=== PATIENT | female | born 1995 | race Caucasian/White ===

== ENCOUNTER 2018-08-07 00:33 | Emergency (ER) | payer SELFPAY ==
[~2018-08-07] VITALS: Ht 152.4 cm; Wt 89.8 kg
[2018-08-07] MEDS ORDERED: TRAM50TA2 PO (01:05)
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
[2018-08-07 01:13] VITALS: BP 126/80
== END 2018-08-07 01:13 | disposition home or self-care (01) ==
LOC: EDUNIT# 00:33 → ER FS 00:40
DX: S80.01XA Contusion of right knee, initial encounter (principal); F17.210 Nicotine dependence, cigarettes, uncomplicated; W22.09XA Striking against other stationary object, initial encounter
CPT/HCPCS: 99283

== ENCOUNTER 2018-09-12 16:47 | Emergency (ER) | payer SELFPAY ==
[~2018-09-12] VITALS: Ht 152.4 cm; Wt 72.6 kg
[~2018-09-12 16:47] MED LIST: TRAM50TA2 PO
--- NOTE | 2018-09-12 17:20 | NUR ---
DR DREW IN TO SEE PT.
[2018-09-12 17:37] LABS: BILIRUBIN,URINE NEGATIVE (NEGATIVE); CLARITY,URINE SL CLOUDY; COLOR,URINE YELLOW; GLUCOSE, URINE (UA) NEGATIVE (NEGATIVE); KETONES,URINE NEGATIVE (NEGATIVE); LEUKOCYTE ESTERASE ,URINE 2+ (NEGATIVE); NITRITE,URINE POSITIVE (NEGATIVE); PROTEIN,URINE TRACE (NEGATIVE); UROBILINOGEN,URINE 0.2 MG/DL (NORMAL)
[2018-09-12 17:38] LABS: BACTERIA,URINE 4+ /HPF; RBC,URINE 0-2 /HPF
[2018-09-12] MEDS ORDERED: CEPHALEXIN 250 MG (KEFLEX) CAP PO STA (17:42)
[2018-09-12] MEDS ORDERED: CEPH500T PO (17:44)
--- NOTE | 2018-09-12 17:44 | ED GU-Female ---
General Chief Complaint: - Urinary Stated Complaint: STOMACH PAINS, NAUSEA Nursing Triage Note: PT PRESENTS WITH VERY LOW ABD TO SUPRAPUBIC REGION PAIN SINCE LAST WEDNESDAY. PT IMMEDIATELY VERBALIZES CONCERN IF . PT SMILING REQUESTING SOMETHING TO DRINK AND WANTING TO USE PHONE OUTSIDE. LMP 07/22/18 Nursing Sepsis Screen: No Definite Risk History of Present Illness Date Seen by Provider: Sep 12, 2018 Time Seen by Provider: 17:21 This is a 23-year-old female who complains of one week of mid suprapubic discomfort, nonradiating. She has implanted control but she is concerned she may be because she has not had a menstrual period in over a month. No vaginal bleeding or discharge. In bowel movements, she has not noticed dysuria or hematuria or frequency. She has vomited intermittently in the evenings during the past week but no vomiting today. This has been nonbilious and nonbloody. Allergies and Home Medications Allergies Coded Allergies: No Known Drug Allergies (Unverified , 08/07/18) Home Medications Cephalexin 500 Mg Tablet, 500 MG PO BID Prescribed by: IRAM DREW on 09/12/18 1744 Tramadol HCl 50 Mg Tablet, 100 MG PO Q8H PRN for PAIN Prescribed by: IRAM DREW on 08/07/18 0105 Patient Home Medication List Home Medication List Reviewed: Yes Review of Systems Review of Systems Constitutional: no symptoms reported EENTM: no symptoms reported Respiratory: no symptoms reported Cardiovascular: no symptoms reported Gastrointestinal: see HPI Genitourinary: no symptoms reported Musculoskeletal: no symptoms reported Skin: no symptoms reported Psychiatric/Neurological: No Symptoms Reported Endocrine: No Symptoms Reported Hematologic/Lymphatic: No Symptoms Reported Past Foqsuot-Cfpufv-Gufzah Hx Patient Social History Alcohol Use: Denies Use Recreational Drug Use: No Smoking Status: Current Everyday Smoker Type Used: Cigarettes 2nd Hand Smoke Exposure: No Recent Foreign Travel: No Contact w/Someone Who Travel: No Recent Infectious Disease Expo: No Recent Hopitalizations: No Seasonal Allergies Seasonal Allergies: No Past Medical History Surgeries: No Respiratory: No Cardiac: No Neurological: No Last Menstrual Period: Jul 22, 2018 Genitourinary: No Gastrointestinal: No Musculoskeletal: Yes (right knee pain) Endocrine: No HEENT: No Cancer: No Psychosocial: No Integumentary: No Blood Disorders: No Adverse Reaction/Blood Tranf: No Physical Exam Vital Signs Vital Signs - First Documented 09/12/18 16:50 Temp 97.6 Pulse 127 Resp 20 B/P (MAP) 137/72 (93) Pulse Ox 98 O2 Delivery Room Air Capillary Refill : Less Than 3 Seconds Height, Weight, BMI Height: 5'0" Weight: 160lbs. oz. 72.940111sg; BMI Method:Stated General Appearance: no apparent distress HEENT: normal ENT inspection Neck: supple Cardiovascular: normal peripheral pulses, regular rate, rhythm Respiratory: lungs clear Gastrointestinal: non tender, soft Back: no CVA tenderness Neurologic/Psychiatric: no motor/sensory deficits, alert, normal mood/affect, oriented x 3; No abnormal gait Skin: warm/dry Progress/Results/Core Measures Suspected Sepsis Recent Fever Within 48 Hours: No Infection Criteria Present: None New/Unexplained Altered Menta: No Sepsis Screen: No Definite Risk SIRS Temperature:97.6 Pulse: 127 Respiratory Rate: 20 Blood Pressure 137 /72 Mean: 93 Results/Orders Lab Results Laboratory Tests Test 09/12/18 16:50 Range/Units Urine Color YELLOW Urine Clarity SL CLOUDY Urine pH 6.0 5-9 Urine Specific [place] 1.025 H 1.016-1.022 Urine Protein TRACE H NEGATIVE Urine Glucose (UA) NEGATIVE NEGATIVE Urine Ketones NEGATIVE NEGATIVE Urine Nitrite POSITIVE H NEGATIVE Urine Bilirubin NEGATIVE NEGATIVE Urine Urobilinogen 0.2 NORMAL MG/DL Urine Leukocyte Esterase 2+ H NEGATIVE Urine RBC (Auto) TRACE H NEGATIVE Urine RBC 0-2 /HPF Urine WBC 10-25 H /HPF Urine Squamous Epithelial Cells 5-10 /HPF Urine Crystals NONE /LPF Urine Bacteria 4+ /HPF Urine Casts NONE /LPF Urine Mucus LARGE H /LPF Urine Culture Indicated YES Urine Test NEGATIVE NEGATIVE My Orders Orders - IRAM DREW DO Hcg,Qualitative Urine (09/12/18 17:13) Ua Culture If Indicated (09/12/18 17:13) Urine Culture (09/12/18 16:50) Cephalexin Capsule (Keflex Capsule) (09/12/18 17:42) Vital Signs/I&O 09/12/18 16:50 Temp 97.6 Pulse 127 Resp 20 B/P (MAP) 137/72 (93) Pulse Ox 98 O2 Delivery Room Air Capillary Refill : Less Than 3 Seconds Blood Pressure Mean: 93 Progress Note : Progress Note This is a 23-year-old female with implanted control here because she has lower abdominal discomfort for one week, intermittent vomiting, and has not had a menstrual period in over a month. She is not . She does have evidence of UTI. We will treat empirically with cephalexin. Abdominal exam is benign. With no vaginal bleeding or discharge or fever or pelvic inflammatory disease is felt to be less likely. With her mild ongoing midline discomfort it is unlikely that she has ovarian torsion. She will follow-up with her doctor as soon as possible for repeat examination and will return for any new or worsening symptoms. Departure Impression Primary Impression: Cystitis Disposition: HOME, SELF-CARE Condition: Stable Departure-Patient Inst. Referrals: NO,LOCAL PHYSICIAN (PCP) Primary Care Physician Patient Instructions: Urinary Tract Infection, Adult (DC) Scripts Cephalexin (Cephalexin) 500 Mg Tablet 500 MG PO BID for 7 Days, #14 TAB 0 Refills Prov: IRAM DREW DO 09/12/18 IRAM DREW DO Sep 12, 2018 17:44
[2018-09-12 17:54] VITALS: BP 132/69
== END 2018-09-12 17:54 | disposition home or self-care (01) ==
LOC: EDUNIT# 16:47 → ER FS 16:49
DX: N30.90 Cystitis, unspecified without hematuria (principal); F17.210 Nicotine dependence, cigarettes, uncomplicated
CPT/HCPCS: 81000; 84703; 87077; 87088; 87186; 99283

== ENCOUNTER 2019-01-12 14:11 | Emergency (ER) | payer SELFPAY ==
[~2019-01-12] VITALS: Ht 152.4 cm; Wt 68.0 kg
[~2019-01-12 14:11] MED LIST changes: +CEPH500T PO
[2019-01-12] MEDS ORDERED: DEXAMETHASONE 10 MG/ML (DECADRON) 1 ML VIAL IM ONE (14:30)
--- NOTE | 2019-01-12 14:42 | ED EENT ---
History of Present Illness General Chief Complaint: Oral/Throat Problems Stated Complaint: SORE THROAT Nursing Triage Note: SORE THROAT FOR 2 WEEKS. Source: patient Exam Limitations: no limitations History of Present Illness Date Seen by Provider: Jan 12, 2019 Time Seen by Provider: 14:20 Initial Comments The patient is an obese 23-year-old female who presents for evaluation of sore throat and congestion over the last 2 weeks. She states that dckh-fcq-jxvzjsx medications are not helping. She is alert and oriented 4, calm, and appears to be in no distress. She denies fevers or chills, chest pain or shortness of breath, nausea or vomiting, abdominal or back pain, dysuria, or syncope. Severity: mild Prearrival Treatment: over the counter meds Allergies and Home Medications Allergies Coded Allergies: No Known Drug Allergies (Unverified , 08/07/18) Home Medications Cephalexin 500 Mg Tablet, 500 MG PO BID Prescribed by: IRAM DREW on 09/12/18 1744 Tramadol HCl 50 Mg Tablet, 100 MG PO Q8H PRN for PAIN Prescribed by: IRAM DREW on 08/07/18 0105 Patient Home Medication List Home Medication List Reviewed: Yes Review of Systems Review of Systems Constitutional: no symptoms reported Eyes: No Symptoms Reported Ears: No Symptoms Reported Nose: congestion Mouth: no symptoms reported Throat: pain, swelling, painful swallowing Respiratory: cough Cardiovascular: no symptoms reported : No Musculoskeletal: no symptoms reported Skin: no symptoms reported Neurological: No Symptoms Reported Hematologic/Lymphatic: No Symptoms Reported Immunological/Allergic: no symptoms reported All Other Systems Reviewed Negative Unless Noted: Yes Past Gapcxio-Efgwbl-Fjbcpi Hx Past Med/Social Hx: Reviewed Nursing Past Med/Soc Hx Patient Social History Alcohol Use: Denies Use Recreational Drug Use: No Type Used: Cigarettes 2nd Hand Smoke Exposure: No Recent Foreign Travel: No Contact w/Someone Who Travel: No Recent Infectious Disease Expo: No Recent Hopitalizations: No Physical Abuse: No Sexual Abuse: No Mistreated: No Fear: No Seasonal Allergies Seasonal Allergies: No Past Medical History Surgeries: No Respiratory: No Cardiac: No Neurological: No Genitourinary: No Gastrointestinal: No Musculoskeletal: Yes (right knee pain) Endocrine: No HEENT: No Cancer: No Psychosocial: No Integumentary: No Blood Disorders: No Adverse Reaction/Blood Tranf: No Physical Exam Vital Signs Vital Signs - First Documented 01/12/19 14:19 Temp 98.7 Pulse 98 Resp 18 B/P (MAP) 116/64 (81) O2 Delivery Room Air Height, Weight, BMI Height: 5'0" Weight: 150lbs. oz. 68.301767ak; BMI Method:Stated General Appearance: WD/WN, no apparent distress, obese Eyes: bilateral eye normal inspection, bilateral eye PERRL, bilateral eye EOMI Mouth/Throat: tongue swollen, tonsillar exudate, tonsillar swelling Neck: non-tender, full range of motion, supple, normal inspection Cardiovascular: regular rate, rhythm, no edema, no JVD Respiratory: lungs clear, normal breath sounds, no respiratory distress Gastrointestinal: normal bowel sounds, non tender, soft Neurologic/Psychiatric: no motor/sensory deficits, alert, normal mood/affect, oriented x 3 Skin: normal color, warm/dry Progress/Results/Core Measures Results/Orders Lab Results Laboratory Tests Test 01/12/19 14:20 01/12/19 14:25 Range/Units Group A Streptococcus Screen POSITIVE H NEGATIVE Urine Test NEGATIVE NEGATIVE My Orders Orders - DALE GREGG DO Rapid Strep A Screen (01/12/19 14:14) Hcg,Qualitative Urine (01/12/19 14:14) Dexamethasone Injection (Decadron Inject (01/12/19 14:30) Medications Given in ED Current Medications Medications Dose Ordered Sig/Kevin Route Start Time Stop Time Status Last Admin Dose Admin Dexamethasone Sodium Phosphate 10 mg ONCE ONCE IM 01/12/19 14:30 01/12/19 14:31 DC 01/12/19 14:46 10 MG Vital Signs/I&O 01/12/19 14:19 Temp 98.7 Pulse 98 Resp 18 B/P (MAP) 116/64 (81) O2 Delivery Room Air Blood Pressure Mean: 81 Progress Progress Note : Progress Note @1502 - Patient updated on positive strep throat finding. She'll go home with a prescription for amoxicillin. Advised patient to follow up with her PCP in next 2-3 days and to return to the emergency department for new or worsening symptoms. The patient expresses verbal understanding and agreement with the plan and is stable for discharge. Departure Impression Primary Impression: Strep pharyngitis Disposition: 01 HOME, SELF-CARE Condition: Stable/Unchanged Departure-Patient Inst. Decision time for Depature: 15:02 Referrals: NO,LOCAL PHYSICIAN (PCP/Family) Primary Care Physician Patient Instructions: Strep Throat (DC) Add. Discharge Instructions: Take the prescribed antibiotic as directed. Follow-up with your doctor in the next 2-3 days. Return to the ER for new or worsening symptoms. Scripts Amoxicillin (Amoxicillin) 500 Mg Capsule 500 MG PO BID for 10 Days, #20 CAP 0 Refills Prov: DALE GREGG DO 01/12/19 DALE GREGG DO Jan 12, 2019 14:41
[2019-01-12] MEDS ORDERED: AMOX500C2 PO (15:03)
[2019-01-12 15:09] VITALS: BP 112/72
== END 2019-01-12 15:10 | disposition home or self-care (01) ==
LOC: EDUNIT# 14:11 → ER FS 14:13
DX: J02.0 Streptococcal pharyngitis (principal)
CPT/HCPCS: 84703; 87430; 99285

== ENCOUNTER 2019-02-28 21:20 | Emergency (ER) | payer SELFPAY ==
[~2019-02-28] VITALS: Ht 152.4 cm; Wt 90.7 kg
[~2019-02-28 21:20] MED LIST changes: +AMOX500C2 PO
[2019-02-28] MEDS ORDERED: AZITHROMYCIN 250 MG TAB (ZITHROMAX) PO ONE (21:45)
[2019-02-28] MEDS ORDERED: LIDOCAINE 1% INJ 20 ML 20 ML VIAL INJ ONE (21:45)
[2019-02-28 21:49] LABS: BACTERIA,URINE LARGE /HPF; BILIRUBIN,URINE NEGATIVE (NEGATIVE); CLARITY,URINE CLOUDY; COLOR,URINE YELLOW; GLUCOSE, URINE (UA) NEGATIVE (NEGATIVE); KETONES,URINE NEGATIVE (NEGATIVE); LEUKOCYTE ESTERASE ,URINE 2+ (NEGATIVE); NITRITE,URINE NEGATIVE (NEGATIVE); PROTEIN,URINE 2+ (NEGATIVE); UROBILINOGEN,URINE 0.2 MG/DL (NORMAL); WBC,URINE TNTC /HPF
[2019-02-28] MEDS ORDERED: cefTRIAXone 1,000 MG IV (ROCEPHIN) VIAL ONE (21:56)
[2019-02-28 22:07] VITALS: BP 128/63
--- NOTE | 2019-02-28 22:07 | ED GU-Female ---
General Chief Complaint: - Urinary Stated Complaint: BURNING W URINATION, VAGINAL BLEEDING Nursing Triage Note: PT. REPORTED SHE WENT TO URGENT CARE ON THE , STARTED HER PERIOD ON THE , WAS TREATED FOR A UTI ON THE AND ALSO REPORTED SHE THROUGH HER MEDICATION AWAY BECAUSE IT DID NOT WORK ON THE . PT. STATED SHE HAS BURNING SHARP PAIN WITH URINATION THEN C/O HAVING PAIN ALL THE TIME. Nursing Sepsis Screen: No Definite Risk Source: patient Exam Limitations: no limitations History of Present Illness Date Seen by Provider: Feb 28, 2019 Time Seen by Provider: 22:04 Initial Comments Patient is a 23-year-old female who presents with intermittent vaginal bleeding while on her menstrual cycle which started yesterday. 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 She also expresses concerns of urinary frequency urgency dysuria. She states she was treated yesterday at [facility] for a urinary tract infection. After taking one dose of antibiotics she states she threw the rest medication away as it did not work. No fevers chills, nausea vomiting or sweats. No history of kidney stones. Patient does express concerns for possible STD exposure and her significant other has checked in the emergency department with similar concerns. Patient is currently on control. Timing/Duration: just prior to arrival Severity/Quality: mild Location: left flank Radiation: none Allergies and Home Medications Allergies Coded Allergies: No Known Drug Allergies (Unverified , 08/07/18) Home Medications Amoxicillin 500 Mg Capsule, 500 MG PO BID Prescribed by: DALE GREGG on 01/12/19 1503 Cephalexin 500 Mg Tablet, 500 MG PO BID Prescribed by: IRAM DREW on 09/12/18 1744 Tramadol HCl 50 Mg Tablet, 100 MG PO Q8H PRN for PAIN Prescribed by: IRAM DREW on 08/07/18 0105 Patient Home Medication List Home Medication List Reviewed: Yes Review of Systems Review of Systems Constitutional: see HPI EENTM: see HPI Respiratory: see HPI Cardiovascular: see HPI Gastrointestinal: see HPI Genitourinary: see HPI Musculoskeletal: see HPI Skin: see HPI Past Czcjknb-Rhbhyu-Yaudng Hx Past Med/Social Hx: Reviewed Nursing Past Med/Soc Hx Patient Social History Type Used: Cigarettes 2nd Hand Smoke Exposure: No Recent Foreign Travel: No Contact w/Someone Who Travel: No Recent Infectious Disease Expo: No Recent Hopitalizations: No Physical Abuse: No Sexual Abuse: No Mistreated: No Fear: No Seasonal Allergies Seasonal Allergies: No Past Medical History Surgeries: No Respiratory: No Cardiac: No Neurological: No : No ( TEST WAS NEG.) Last Menstrual Period: Feb 27, 2019 Genitourinary: No Gastrointestinal: No Endocrine: No HEENT: No Cancer: No Did You Recieve Any Treatments: No Psychosocial: No Integumentary: No Blood Disorders: No Adverse Reaction/Blood Tranf: No Physical Exam Vital Signs Vital Signs - First Documented 02/28/19 21:25 Temp 36.8 Pulse 97 Resp 20 B/P (MAP) 128/63 (84) Pulse Ox 97 O2 Delivery Room Air Capillary Refill : Less Than 3 Seconds Height, Weight, BMI Height: 5'0" Weight: 150lbs. oz. 68.001338ek; 39.00 BMI Method:Stated General Appearance: no apparent distress HEENT: PERRL/EOMI, normal ENT inspection Neck: full range of motion, supple Respiratory: normal breath sounds Gastrointestinal: soft Back: no CVA tenderness Neurologic/Psychiatric: change management lead II-XII nml as tested, no motor/sensory deficits, alert, normal mood/affect, oriented x 3 Focused Exam Sepsis Stage: Ruled Out Progress/Results/Core Measures Suspected Sepsis Recent Fever Within 48 Hours: No Infection Criteria Present: None New/Unexplained Altered Menta: No Sepsis Screen: No Definite Risk SIRS Temperature: Pulse: 97 Respiratory Rate: 20 Blood Pressure 128 /63 Mean: 84 Results/Orders Lab Results Laboratory Tests Test 02/28/19 21:33 Range/Units Urine Color YELLOW Urine Clarity CLOUDY Urine pH 6.0 5-9 Urine Specific [place] 1.025 H 1.016-1.022 Urine Protein 2+ H NEGATIVE Urine Glucose (UA) NEGATIVE NEGATIVE Urine Ketones NEGATIVE NEGATIVE Urine Nitrite NEGATIVE NEGATIVE Urine Bilirubin NEGATIVE NEGATIVE Urine Urobilinogen 0.2 NORMAL MG/DL Urine Leukocyte Esterase 2+ H NEGATIVE Urine RBC (Auto) 2+ H NEGATIVE Urine RBC NONE /HPF Urine WBC TNTC H /HPF Urine Squamous Epithelial Cells 5-10 /HPF Urine Crystals NONE /LPF Urine Bacteria LARGE H /HPF Urine Casts NONE /LPF Urine Mucus NEGATIVE /LPF Urine Culture Indicated YES My Orders Orders - TANA OCAMPO DO Ua Culture If Indicated (02/28/19 21:35) Urine Bedside (02/28/19 21:35) Ceftriaxone For Im Use (Rocephin For Im (03/01/19 09:00) Lidocaine 1% Inj 20 Ml (Xylocaine 1% Inj (02/28/19 21:45) Azithromycin Tablet (Zithromax Tablet) (02/28/19 21:45) Urine Culture (02/28/19 21:33) Ceftriaxone For Iv Use (Rocephin For I (02/28/19 21:56) Medications Given in ED Current Medications Medications Dose Ordered Sig/Kevin Route Start Time Stop Time Status Last Admin Dose Admin Azithromycin 1,000 mg ONCE ONCE PO 02/28/19 21:45 02/28/19 21:46 DC 02/28/19 22:00 1,000 MG Ceftriaxone Sodium 1,000 mg STK-MED ONCE .ROUTE 02/28/19 21:56 02/28/19 21:57 DC 02/28/19 22:00 1,000 MG Lidocaine HCl 2.1 ml ONCE ONCE INJ 02/28/19 21:45 02/28/19 21:46 DC 02/28/19 21:59 2.1 ML Vital Signs/I&O 02/28/19 21:25 Temp 36.8 Pulse 97 Resp 20 B/P (MAP) 128/63 (84) Pulse Ox 97 O2 Delivery Room Air Capillary Refill : Less Than 3 Seconds Blood Pressure Mean: 84 Departure Communication (Admissions) Patient given empiric treatment for possible UTI/STD exposure. Instructions were to follow up with her FORMS ANALYST for further concerns. Impression Primary Impression: Concern about STD in female without diagnosis Additional Impression: Dysuria Disposition: 01 HOME, SELF-CARE Condition: Improved Departure-Patient Inst. Patient Instructions: Urinary Tract Infection, Adult (DC) Add. Discharge Instructions: Please follow up with PCP or FORMS ANALYST in 3-5 days for reevaluation. All discharge instructions reviewed with patient and/or family. Voiced understanding. TANA OCAMPO DO Feb 28, 2019 22:07
[2019-03-01] MEDS ORDERED: cefTRIAXone 1,000 MG/2.86 ml vial (IM ONLY) IM SCH (09:00)
== END 2019-02-28 22:05 | disposition home or self-care (01) ==
LOC: EDUNIT# 21:20 → ER FS 21:22
DX: R30.0 Dysuria (principal); Z11.3 Encounter for screening for infections with a predominantly sexual mode of transmission
CPT/HCPCS: 81000; 84703; 87077; 87088; 87186; 96372; 99284

== ENCOUNTER 2019-05-02 18:28 | Emergency (ER) | payer SELFPAY ==
[~2019-05-02] VITALS: Ht 152 cm; Wt 93.3 kg
[2019-05-02 18:49] LABS: BILIRUBIN,URINE NEGATIVE (NEGATIVE); CLARITY,URINE SLIGHTLY CLOUDY; COLOR,URINE YELLOW; GLUCOSE, URINE (UA) NEGATIVE (NEGATIVE); KETONES,URINE NEGATIVE (NEGATIVE); LEUKOCYTE ESTERASE ,URINE TRACE (NEGATIVE); NITRITE,URINE NEGATIVE (NEGATIVE); PH,URINE 6.5 (5-9); PROTEIN,URINE NEGATIVE (NEGATIVE)
[2019-05-02 18:50] LABS: HCG,QUALITATIVE URINE NEGATIVE (NEGATIVE)
[2019-05-02 18:54] LABS: BACTERIA,URINE NEGATIVE /HPF; RBC,URINE TNTC /HPF; SQUAMOUS EPITHELIAL CELL,UR 25-50 /HPF
--- NOTE | 2019-05-02 19:31 | ED GU-Female ---
General Chief Complaint: Abdominal/GI Problems Stated Complaint: STOMACHE/VAGINA BLEEDING Nursing Triage Note: Patient states she had her control implant removed just before , states she had some vaginal bleeding then. She reports today she woke around 11 am with generalized abdominal pain and "heavier than my normal period bleeding." She reports saturating 3 pads in 3 hours. She states she has been taking tests at home, test on the was negative. She reports taking tylenol at home which helped her pain. She states she had one miscarriage at age 18, then has had two normal pregnancies and deliveries. Nursing Sepsis Screen: No Definite Risk Source: patient History of Present Illness Date Seen by Provider: May 02, 2019 Time Seen by Provider: 19:31 Initial Comments 23-year-old female presenting with complaints of heavy vaginal bleeding and pelvic pain today. She states that she had an implantable control removed just before and had a very light menstrual period right after that. Then no menstrual cycle since then until now. today she started having pelvic pain and heavy menstrual bleeding. She states that she is getting clots coming out as well as used 3 pads in the last 3 hours. She is trying to get with her current boyfriend. She has taken multiple tests at home that have been negative the most recent one was on the . She denies having any fever or chills. She has no change in her bowel movements. Allergies and Home Medications Allergies Coded Allergies: No Known Drug Allergies (Unverified , 08/07/18) Home Medications Amoxicillin 500 Mg Capsule, 500 MG PO BID Prescribed by: DALE GREGG on 01/12/19 1503 Cephalexin 500 Mg Tablet, 500 MG PO BID Prescribed by: IRAM DREW on 09/12/18 174 Naproxen 500 Mg Tablet, 500 MG PO BID Prescribed by: BENJAMIN SIMPSON on 05/02/191999 Tramadol HCl 50 Mg Tablet, 100 MG PO Q8H PRN for PAIN Prescribed by: IRAM DREW on 08/07/18 0105 Patient Home Medication List Home Medication List Reviewed: Yes Review of Systems Review of Systems Constitutional: see HPI EENTM: no symptoms reported Respiratory: no symptoms reported Cardiovascular: no symptoms reported Gastrointestinal: abdominal pain (RLQ and LLQ); No nausea, No vomiting Genitourinary: see HPI; denies dysuria, denies frequency; other (low pelvic pain with vaginal bleeding but no discharge. Heavy bleeding today) Musculoskeletal: no symptoms reported Skin: no symptoms reported Past Gwcjpay-Njjadc-Hvhqof Hx Past Med/Social Hx: Reviewed Nursing Past Med/Soc Hx Patient Social History Alcohol Use: Denies Use Recreational Drug Use: Yes Drug of Choice: marijuana Smoking Status: Current Everyday Smoker Type Used: Cigarettes 2nd Hand Smoke Exposure: No Recent Foreign Travel: No Contact w/Someone Who Travel: No Recent Infectious Disease Expo: No Recent Hopitalizations: No Physical Abuse: No Sexual Abuse: No Mistreated: No Fear: No Seasonal Allergies Seasonal Allergies: No Past Medical History Surgeries: No Respiratory: No Cardiac: No Neurological: No Hx : 3 Hx Para: 2 Hx Total # of Abortions (Sp): 1 Genitourinary: No Gastrointestinal: No Musculoskeletal: No Endocrine: No HEENT: No Cancer: No Did You Recieve Any Treatments: No Psychosocial: No Integumentary: No Blood Disorders: No Adverse Reaction/Blood Tranf: No Physical Exam Vital Signs Vital Signs - First Documented 05/02/19 18:40 Temp 36.5 Pulse 94 Resp 16 B/P (MAP) 145/84 (104) Pulse Ox 99 O2 Delivery Room Air Capillary Refill : Less Than 3 Seconds Height, Weight, BMI Height: 5'0" Weight: 150lbs. oz. [id number]; 40.00 BMI Method:Stated General Appearance: WD/WN, no apparent distress HEENT: PERRL/EOMI, pharynx normal Pelvic: other (deferred due to bleeding and pain patient states she will fol low-up with gynecology if pelvic exam needed) Skin: normal color, warm/dry Progress/Results/Core Measures Suspected Sepsis Recent Fever Within 48 Hours: No Infection Criteria Present: None New/Unexplained Altered Menta: No Sepsis Screen: No Definite Risk SIRS Temperature: Pulse: 94 Respiratory Rate: 16 Blood Pressure 145 /84 Mean: 104 Results/Orders Lab Results Laboratory Tests Test 05/02/19 18:40 Range/Units Urine Color YELLOW Urine Clarity SLIGHTLY CLOUDY Urine pH 6.5 5-9 Urine Specific [place] 1.025 H 1.016-1.022 Urine Protein NEGATIVE NEGATIVE Urine Glucose (UA) NEGATIVE NEGATIVE Urine Ketones NEGATIVE NEGATIVE Urine Nitrite NEGATIVE NEGATIVE Urine Bilirubin NEGATIVE NEGATIVE Urine Urobilinogen 0.2 < = 1.0 MG/DL Urine Leukocyte Esterase TRACE NEGATIVE Urine RBC (Auto) 3+ H NEGATIVE Urine RBC TNTC H /HPF Urine WBC NONE /HPF Urine Squamous Epithelial Cells 25-50 H /HPF Urine Crystals NONE /LPF Urine Bacteria NEGATIVE /HPF Urine Casts NONE /LPF Urine Mucus NEGATIVE /LPF Urine Culture Indicated NO Urine Test NEGATIVE NEGATIVE My Orders Orders - BENJAMIN SIMPSON MD Hcg,Qualitative Urine (05/02/19 18:44) Ketorolac Injection (Toradol Injection) (05/02/19 19:54) Vital Signs/I&O 05/02/19 05/02/19 18:40 20:02 Temp 36.5 36.8 Pulse 94 90 Resp 16 20 B/P (MAP) 145/84 (104) 103/62 Pulse Ox 99 98 O2 Delivery Room Air Room Air Capillary Refill : Less Than 3 Seconds Blood Pressure Mean: 104 POS Progress Note : Progress Note UA and urine test showed some blood but negative test. There is no sign of infection. Advised patient that this still appears to be consistent with her body trying to equalize out hormone levels and that it is not uncommon after having removal of the implanted control that she might have some heavier than normal periods as well as painful periods. Counseled to check back with Dr. Graves or she may need an ultrasound if she continues to have severe pain and heavy bleeding. In the meantime try a Toradol shot here and have her use ibuprofen or naproxen at home. I had a lengthy discussion about how the body ovulates and goes through the menstrual cycle on normal monthly basis with the patient and her boyfriend. She seemed to have a knowledge deficit in that area. Departure Impression Primary Impression: Menometrorrhagia Disposition: 01 HOME, SELF-CARE Condition: Stable Departure-Patient Inst. Decision time for Depature: 19:57 Referrals: NO,LOCAL PHYSICIAN (PCP) Primary Care Physician GRACIE GRAVES DO Patient Instructions: Heavy Periods (DC), Painful Periods Add. Discharge Instructions: Your painful and heavy period is likely related to your body trying to regulate your hormones and the lining of the uterus after having the control bar removed from your arm. Check back with Dr. Graves if you have continued pain and bleeding and this is not slowing down or improving in the next 1-2 days All discharge instructions reviewed with patient and/or family. Voiced understanding. Scripts Naproxen (Naprosyn) 500 Mg Tablet 500 MG PO BID for 10 Days, #20 TAB 0 Refills Prov: BENJAMIN SIMPSON MD 05/02/19 BENJAMIN SIMPSON MD May 02, 2019 19:31 POS
[2019-05-02] MEDS ORDERED: KETOROLAC 60 MG/2 ML VIAL IM STA (19:54)
[2019-05-02] MEDS ORDERED: NAPR-1071 PO (20:00)
[2019-05-02 20:02] VITALS: BP 103/62
== END 2019-05-02 20:02 | disposition home or self-care (01) ==
LOC: EDUNIT# 18:28 → ER FS 18:31
DX: N92.1 Excessive and frequent menstruation with irregular cycle (principal); F17.210 Nicotine dependence, cigarettes, uncomplicated
CPT/HCPCS: 81000; 84703; 96372; 99284

== ENCOUNTER 2019-06-28 | Emergency (ER) | payer SELFPAY ==
[~2019-06-28] VITALS: Ht 162 cm; Wt 96.5 kg
[~2019-06-28] MED LIST changes: +NAPR-1071 PO; -TRAM50TA2 PO; +TRM50T PO
--- NOTE | 2019-06-28 00:20 | ED Abdominal Pain ---
General Chief Complaint: Abdominal/GI Problems Stated Complaint: ABD PAIN, VOMITING Source of Information: Patient Exam Limitations: No Limitations History of Present Illness Date Seen by Provider: Jun 28, 2019 Time Seen by Provider: 00:18 Initial Comments A complains of abdominal cramping associated with nausea and vomiting for the pa st several hours. She was able to eat a hamburger and fries for supper. No fevers or chills. No urinary symptoms. Concerned she may be . Allergies and Home Medications Allergies Coded Allergies: No Known Drug Allergies (Unverified , 08/07/18) Home Medications Amoxicillin 500 Mg Capsule, 500 MG PO BID Prescribed by: DALE GREGG on 01/12/19 1503 Cephalexin 500 Mg Tablet, 500 MG PO BID Prescribed by: IRAM DREW on 09/12/18 1744 Naproxen 500 Mg Tablet, 500 MG PO BID Prescribed by: BENJAMIN SIMPSON on 05/02/191999 Tramadol HCl 50 Mg Tablet, 100 MG PO Q8H PRN for PAIN Prescribed by: IRAM DREW on 08/07/18 0105 Patient Home Medication List Home Medication List Reviewed: Yes Review of Systems Review of Systems Constitutional: no symptoms reported Respiratory: No Symptoms Reported Cardiovascular: No Symptoms Reported Gastrointestinal: Abdominal Pain, Nausea, Vomiting Musculoskeletal: no symptoms reported Skin: no symptoms reported All Other Systems Reviewed Negative Unless Noted: Yes Past Dkgwhhi-Fasmes-Pnqmje Hx Patient Social History Drug of Choice: marijuana Type Used: Cigarettes 2nd Hand Smoke Exposure: No Recent Foreign Travel: No Contact w/Someone Who Travel: No Recent Hopitalizations: No Seasonal Allergies Seasonal Allergies: No Past Medical History Surgeries: No Respiratory: No Cardiac: No Neurological: No Genitourinary: No Gastrointestinal: No Musculoskeletal: No Endocrine: No HEENT: No Cancer: No Did You Recieve Any Treatments: No Psychosocial: No Integumentary: No Blood Disorders: No Adverse Reaction/Blood Tranf: No Physical Exam Vital Signs Vital Signs - First Documented 06/28/19 00:08 Temp 37.1 Pulse 98 Resp 18 B/P (MAP) 117/83 (94) Pulse Ox 98 O2 Delivery Room Air Capillary Refill : Height/Weight/BMI Height: 5'0" Weight: 150lbs. oz. 68.919803vh; 40.00 BMI Method:Stated General Appearance: WD/WN, no apparent distress (laughing and joking with friends), obese HEENT: pharynx normal Neck: supple Respiratory: lungs clear, normal breath sounds Cardiovascular: regular rate, rhythm, no edema Gastrointestinal: non tender, soft; No distended, No rebound, No tenderness Extremities: normal inspection Neurologic/Psychiatric: alert, normal mood/affect Skin: normal color, warm/dry Progress/Results/Core Measures Results/Orders Lab Results Laboratory Tests Test 06/28/19 00:10 06/28/19 00:12 Range/Units Urine Color YELLOW Urine Clarity CLOUDY Urine pH 7.0 5-9 Urine Specific [place] 1.025 H 1.016-1.022 Urine Protein NEGATIVE NEGATIVE Urine Glucose (UA) NEGATIVE NEGATIVE Urine Ketones NEGATIVE NEGATIVE Urine Nitrite NEGATIVE NEGATIVE Urine Bilirubin NEGATIVE NEGATIVE Urine Urobilinogen 0.2 < = 1.0 MG/DL Urine Leukocyte Esterase NEGATIVE NEGATIVE Urine RBC (Auto) NEGATIVE NEGATIVE Urine RBC NONE /HPF Urine WBC 0-2 /HPF Urine Squamous Epithelial Cells 2-5 /HPF Urine Crystals PRESENT H /LPF Urine Amorphous Sediment MOD MARILIN PHOSPHATE H /LPF Urine Bacteria FEW H /HPF Urine Casts NONE /LPF Urine Mucus NONE /LPF Urine Culture Indicated YES Urine Test NEGATIVE NEGATIVE White Blood Count 12.8 H 4.3-11.0 10^3/uL Red Blood Count 5.05 4.35-5.85 10^6/uL Hemoglobin 13.7 11.5-16.0 G/DL Hematocrit 43 35-52 % Mean Corpuscular Volume 85 80-99 FL Mean Corpuscular Hemoglobin 27 25-34 PG Mean Corpuscular Hemoglobin Concent 32 32-36 G/DL Red Cell Distribution Width 14.3 10.0-14.5 % Platelet Count 480 H 130-400 10^3/uL Mean Platelet Volume 9.4 7.4-10.4 FL Neutrophils (%) (Auto) 76 H 42-75 % Lymphocytes (%) (Auto) 15 12-44 % Monocytes (%) (Auto) 7 0-12 % Eosinophils (%) (Auto) 1 0-10 % Basophils (%) (Auto) 1 0-10 % Neutrophils # (Auto) 9.7 H 1.8-7.8 X 10^3 Lymphocytes # (Auto) 2.0 1.0-4.0 X 10^3 Monocytes # (Auto) 0.9 0.0-1.0 X 10^3 Eosinophils # (Auto) 0.2 0.0-0.3 10^3/uL Basophils # (Auto) 0.1 0.0-0.1 10^3/uL My Orders Orders - LINDA BRADSHAW MD Cbc With Automated Diff (06/28/19 00:09) Comprehensive Metabolic Panel (06/28/19 00:09) Hcg,Qualitative Urine (06/28/19 00:09) Lipase (06/28/19 00:09) Ua Culture If Indicated (06/28/19 00:09) Ed Iv/Invasive Line Start (06/28/19 00:15) Urine Culture (06/28/19 00:10) Vital Signs/I&O 06/28/19 00:08 Temp 37.1 Pulse 98 Resp 18 B/P (MAP) 117/83 (94) Pulse Ox 98 O2 Delivery Room Air Progress Progress Note : Time: 00:40 Progress Note Not an acute abdomen. Departure Impression Primary Impression: Abdominal pain Disposition: 01 HOME, SELF-CARE Condition: Stable Departure-Patient Inst. Decision time for Depature: 00:41 Referrals: NO,LOCAL PHYSICIAN (PCP) Primary Care Physician Patient Instructions: Acute Abdomen (Belly Pain), Adult (DC) Add. Discharge Instructions: Clear liquid diet for next 24 hours. See your doctor if symptoms are not improving by All discharge instructions reviewed with patient and/or family. Voiced understanding. LINDA BRADSHAW MD Jun 28, 2019 00:20
[2019-06-28 00:26] LABS: BILIRUBIN,URINE NEGATIVE (NEGATIVE); CLARITY,URINE CLOUDY; COLOR,URINE YELLOW; GLUCOSE, URINE (UA) NEGATIVE (NEGATIVE); KETONES,URINE NEGATIVE (NEGATIVE); LEUKOCYTE ESTERASE ,URINE NEGATIVE (NEGATIVE); NITRITE,URINE NEGATIVE (NEGATIVE); PROTEIN,URINE NEGATIVE (NEGATIVE)
[2019-06-28 00:27] LABS: AMORPHOUS SEDIMENT,UR MOD AMOR PHOSPHATE /LPF; BACTERIA,URINE FEW /HPF; WBC,URINE 0-2 /HPF
[2019-06-28 00:38] LABS: BASOPHILS % (AUTO) 1 % (0-10); EOSINOPHILS % (AUTO) 1 % (0-10); HEMATOCRIT 43 % (35-52); HEMOGLOBIN 13.7 G/DL (11.5-16.0); LYMPHOCYTES % (AUTO) 15 % (12-44); MEAN CORPUSCULAR HEMOGLOBIN 27 PG (25-34); MEAN CORPUSCULAR HGB CONC 32 G/DL (32-36); MEAN CORPUSCULAR VOLUME 85 FL (80-99); MEAN PLATELET VOLUME 9.4 FL (7.4-10.4); MONOCYTES % (AUTO) 7 % (0-12); NEUTROPHILS % (AUTO) 76 % (42-75); PLATELET COUNT 480 10^3/uL (130-400); RED CELL DISTRIBUTION WIDTH 14.3 % (10.0-14.5); WHITE BLOOD COUNT 12.8 10^3/uL (4.3-11.0)
[2019-06-28 00:39] LABS: BASOPHILS # (AUTO) 0.1 10^3/uL (0.0-0.1); EOSINOPHILS # (AUTO) 0.2 10^3/uL (0.0-0.3); MONOCYTES # (AUTO) 0.9 X 10^3 (0.0-1.0); NEUTROPHILS # (AUTO) 9.7 X 10^3 (1.8-7.8)
[2019-06-28 00:42] LABS: ALANINE AMINOTRANSFERASE 56 U/L (0-55); ALBUMIN 4.6 GM/DL (3.2-4.5); ALKALINE PHOSPHATASE 78 U/L (40-136); BILIRUBIN,TOTAL 0.2 MG/DL (0.1-1.0); BUN/CREATININE RATIO 14; CALCIUM 10.1 MG/DL (8.5-10.1); CARBON DIOXIDE 28 MMOL/L (21-32); CHLORIDE 101 MMOL/L (98-107); CREATININE SERUM 0.69 MG/DL (0.60-1.30); GFR ESTIMATED > 60; GLUCOSE 94 MG/DL (70-105); LIPASE 32 U/L (8-78); POTASSIUM 4.3 MMOL/L (3.6-5.0); SODIUM 140 MMOL/L (135-145); TOTAL PROTEIN 7.4 GM/DL (6.4-8.2)
[2019-06-28 00:50] VITALS: BP 113/58
== END 2019-06-28 00:49 | disposition home or self-care (01) ==
LOC: EDUNIT# → ER FS 00:03
DX: R10.9 Unspecified abdominal pain (principal)
CPT/HCPCS: 36415; 80053; 81000; 83690; 84703; 85025; 87088

== ENCOUNTER 2019-07-13 13:00 | Emergency (ER) | payer MEDICAID ==
[~2019-07-13] VITALS: Ht 158.5 cm; Wt 95.9 kg
[2019-07-13] MEDS ORDERED: BENZONATATE 100 MG (TESSALON) CAPSULE PO ONE (13:44)
[2019-07-13] MEDS ORDERED: ACETAMINOPHEN 325 MG TABLET PO ONE (13:45)
[2019-07-13] MEDS ORDERED: BENZ-36 PO (13:51)
--- NOTE | 2019-07-13 13:51 | ED General ---
General Stated Complaint: COUGH,LOW GRADE FEVER,BODY CHILLS [id number] History of Present Illness Date Seen by Provider: Jul 13, 2019 Time Seen by Provider: 13:10 Initial Comments The patient is a 24-year-old female with a history tobacco abuse and who is otherwise healthy. She presents for evaluation of mild upper respiratory symptoms including rhinorrhea, nasal congestion and dry cough which have been p resent over about the last 1 week. Other symptoms have regressed but cough remains problematic for the patient. She is concerned she might have bronchitis. No associated fevers, vomiting, shortness of breath/difficulty breathing, abdominal pain, flank pain, back pain, dysuria or hematuria, changes in bowel habits. Patient appears in absolutely no distress and has completely appropriate vital signs including oxygenation upon initial evaluation in the emergency department. Allergies and Home Medications Allergies Coded Allergies: No Known Drug Allergies (Unverified , 08/07/18) Home Medications Amoxicillin 500 Mg Capsule, 500 MG PO BID Prescribed by: DALE GREGG on 01/12/19 1503 Benzonatate 100 Mg Capsule, 100 MG PO Q8H Prescribed by: LAURI LOPEZ on 07/13/19 1351 Cephalexin 500 Mg Tablet, 500 MG PO BID Prescribed by: IRAM DREW on 09/12/18 1744 Naproxen 500 Mg Tablet, 500 MG PO BID Prescribed by: BENJAMIN SIMPSON on 05/02/19 2000 Tramadol HCl 50 Mg Tablet, 100 MG PO Q8H PRN for PAIN Prescribed by: IRAM DREW on 08/07/18 0105 Patient Home Medication List Home Medication List Reviewed: Yes Review of Systems Review of Systems Constitutional: see HPI All Other Systems Reviewed Negative Unless Noted: Yes (Negative excepted noted.) Past Beenovz-Yfttne-Zwsraq Hx Past Med/Social Hx: Reviewed Nursing Past Med/Soc Hx Patient Social History Drug of Choice: marijuana Type Used: Cigarettes 2nd Hand Smoke Exposure: Yes Recent Foreign Travel: No Contact w/Someone Who Travel: No Recent Hopitalizations: No Seasonal Allergies Seasonal Allergies: No Past Medical History Surgeries: No Respiratory: No Cardiac: No Neurological: No Genitourinary: No Gastrointestinal: No Musculoskeletal: No Endocrine: No HEENT: No Cancer: No Did You Recieve Any Treatments: No Psychosocial: No Integumentary: No Blood Disorders: No Adverse Reaction/Blood Tranf: No Family Medical History Reviewed Nursing Family Hx Physical Exam Vital Signs Vital Signs - First Documented 07/13/19 13:25 O2 Delivery Room Air Capillary Refill : Height, Weight, BMI Height: 5'0" Weight: 150lbs. oz. [id number]; 36.00 BMI Method:Stated General Appearance: No Apparent Distress Comments This is a well-appearing 24-year-old female in no acute distress. Head is normocephalic and atraumatic. Neck is supple and nontender. Oropharynx is moist. Lungs are clear to auscultation at all stations. There is normal S1 and S2 without rubs or gallops and capillary refill is appropriate, less than 2 seconds globally. Abdomen is soft, nontender and nondistended. Skin is warm and dry without cyanosis, clubbing or edema. Psychiatrically, the patient demonstrates appropriate mood and affect and is alert. Progress/Results/Core Measures Suspected Sepsis SIRS Temperature: Pulse: Respiratory Rate: Blood Pressure / Mean: Results/Orders My Orders Orders - LAURI LOPEZ MD Benzonatate Capsule (Tessalon Perles) (07/13/19 21:00) Acetaminophen Tablet/Caplet (Tylenol T (07/13/19 13:45) Chest Pa/Lat (2 View) (07/13/19 13:39) Benzonatate Capsule (Tessalon Perles) (07/13/19 13:44) Medications Given in ED Current Medications Medications Dose Ordered Sig/Kevin Route Start Time Stop Time Status Last Admin Dose Admin Acetaminophen 975 mg ONCE ONCE PO 07/13/19 13:45 07/13/19 13:46 DC 07/13/19 13:50 975 MG Vital Signs/I&O 07/13/19 13:25 O2 Delivery Room Air Capillary Refill : Progress Note : Time: 13:49 Progress Note Well-appearing 24-year-old female who presents for continued dry cough in the aftermath of upper respiratory symptoms. Likely postviral cough versus acute bronchitis. Vital signs and clinical examination reassuring. We'll check a chest x-ray per the patient's request however very low suspicion for pneumonia or other acute process of concern. We'll give some Tylenol for discomfort and some benzonatate for cough and will plan for discharge home with a benzonatate prescription to follow up very closely with primary care in the office in the next 2-4 days if plain films are reassuring. Update: Plain films reassuring. We'll proceed with discharge as per plan. Patient understands that if she feels worse is that of better or develops other new symptoms of concern that she should return to the emergency department immediately for reevaluation. All questions are answered. Diagnostic Imaging Diagonstic Imaging: Xray Comments CXR without evidence of acute cardiopulmonary process per EP interpretation Departure Impression Primary Impression: Post-viral cough syndrome Disposition: HOME, SELF-CARE Condition: Improved Departure-Patient Inst. Referrals: NO,LOCAL PHYSICIAN (PCP/Family) Primary Care Physician Patient Instructions: Viral Upper Respiratory Infection, Adult (DC) Add. Discharge Instructions: Follow-up very closely with your primary care physician in the next 2-4 days as discussed for a reevaluation of your symptoms. Use the medication as prescribed for your cough. Return to the emergency department right away with worsening symptoms or other new concerns. Scripts Benzonatate (Benzonatate) 100 Mg Capsule 100 MG PO Q8H for cough, #21 CAP Prov: LAURI LOPEZ MD 07/13/19 LAURI LOPEZ MD Jul 13, 2019 13:51
--- NOTE | 2019-07-13 13:53 | Diagnostic Imaging Report ---
Indication: Cough x1 week PA and lateral chest Heart size and pulmonary vascularity are normal. Lungs are clear. There are no effusions or pneumothoraces. IMPRESSION: Negative chest Dictated by: Dictated on workstation # [id number]
[2019-07-13 14:02] VITALS: BP 99/69
[2019-07-13] MEDS ORDERED: BENZONATATE 100 MG (TESSALON) CAPSULE PO SCH (21:00)
== END 2019-07-13 14:02 | disposition home or self-care (01) ==
LOC: EDUNIT# 13:00 → ER FS 13:02
DX: R05 Cough (principal); Z77.22 Contact with and (suspected) exposure to environmental tobacco smoke (acute) (chronic)
CPT/HCPCS: 71046

== ENCOUNTER 2019-07-19 23:57 | Emergency (ER) | payer MEDICAID ==
[~2019-07-19] VITALS: Ht 157.4 cm; Wt 90.9 kg
[~2019-07-19 23:57] MED LIST changes: +BENZ-36 PO
[2019-07-20] MEDS ORDERED: ONDANSETRON 4 MG (ZOFRAN) ORAL DISSOLVE TAB ONE (00:05)
[2019-07-20] MEDS ORDERED: ONDANSETRON 4 MG (ZOFRAN) ORAL DISSOLVE TAB PO STA (00:10)
[2019-07-20 00:15] VITALS: BP 119/93
--- OUTSIDE RECORDS SUMMARY | 2019-07-26 12:26 | XMS REPORT | Continuity of Care Document ---
Author Organization Unknown Address Unknown Phone Unavailable Allergies Active Description Code Type Severity Reaction Onset Reported/Identified Relationship to Patient Clinical Status Yes No Known Drug Allergies [id number] Drug Allergy Unknown N/A 08/07/2018 Medications There is no data. Problems Date Dx Coded Attending Type Code Diagnosis Diagnosed By 08/07/2018 IRAM DREW DO T Ot F17.210 NICOTINE DEPENDENCE, CIGARETTES, UNCOMPL 08/07/2018 IRAM DREW DO T Ot M25.461 EFFUSION, RIGHT KNEE 08/07/2018 BERTHA DREW DOED T Ot S80.01XA CONTUSION OF RIGHT KNEE, INITIAL ENCOUNT 08/07/2018 IRAM DREW DO T Ot W22.09XA STRIKING AGAINST OTHER STATIONARY OBJECT 09/12/2018 BERTHA DREW DOED T Ot F17.210 NICOTINE DEPENDENCE, CIGARETTES, UNCOMPL 09/12/2018 RAJENDRA RINCON IRAM T Ot N30. 90 CYSTITIS, UNSPECIFIED WITHOUT HEMATURIA 09/12/2018 IRAM DREW DO T Ot R10. 13 EPIGASTRIC PAIN 09/15/2018 IRAM DREW DO T Ot F17.210 NICOTINE DEPENDENCE, CIGARETTES, UNCOMPL 09/15/2018 RAJENDRA RINCON IRAM T Ot N30. 90 CYSTITIS, UNSPECIFIED WITHOUT HEMATURIA 09/15/2018 IRAM DREW DO T Ot R10. 13 EPIGASTRIC PAIN 01/12/2019 MARYSOL HUNTER DO B Ot J02. 0 STREPTOCOCCAL PHARYNGITIS 01/12/2019 MARYSOL HUNTER DO Ot J02. 9 ACUTE PHARYNGITIS, UNSPECIFIED 01/16/2019 MARYSOL HUNTER DO Ot J02. 0 STREPTOCOCCAL PHARYNGITIS 01/16/2019 MARYSOL HUNTER DO Ot J02. 9 ACUTE PHARYNGITIS, UNSPECIFIED 02/28/2019 TANA OCAMPO DO Ot R30.0 DYSURIA 02/28/2019 TANA OCAMPO DO Ot Z11.3 ENCNTR SCREEN FOR INFECTIONS W SEXL MODE 03/07/2019 OCAMPO DO, TANA Ot R30.0 DYSURIA 03/07/2019 GANS DO, TANA Ot Z11.3 ENCNTR SCREEN FOR INFECTIONS W SEXL MODE 03/08/2019 GANS DO, TANA Ot R30.0 DYSURIA 03/08/2019 [facility], TANA Ot Z11.3 ENCNTR SCREEN FOR INFECTIONS W SEXL MODE 05/02/2019 TATIANA SUAZO, BENJAMIN Mojica Ot F17.2 10 NICOTINE DEPENDENCE, CIGARETTES, UNCOMPL 05/02/2019 TATIANA SUAZO, BENJAMIN Mojica Ot N92.1 EXCESSIVE AND FREQUENT MENSTRUATION WITH 05/02/2019 TATIANA SUAZO, BENJAMIN Mojica Ot N93.9 ABNORMAL UTERINE AND VAGINAL BLEEDING, U 2019 Ot R10.9 UNSP ECIFIED ABDOMINAL PAIN 06/30/2019 Ot R10.9 UNSP ECIFIED ABDOMINAL PAIN 07/18/2019 JOHN SUAZO, LAURI Jordan Ot R05 COUGH 07/18/2019 JOHN SUAZO, LAURI Jordan Ot Z77. 22 CNTCT W AND EXPSR TO ENVIRON TOBACCO SMO 07/21/2019 [facility], TANA Ot R30.0 DYSURIA 07/21/2019 [facility], TANA Ot Z11.3 ENCNTR SCREEN FOR INFECTIONS W SEXL MODE Procedures There is no data. Results Test Result Range Urine beta human chorionic gonadotropin (hCG) measurement - 09/12/18 16:50 Urine beta human chorionic gonadotropin (hCG) measurem ent NEGATIVE NEGATIVE Complete urinalysis with reflex to cultu re - 09/12/18 16:50 Urine color determination YELLOW NRG Urine clarity determination SL CLOUDY N RG Urine pH measurement by test strip 6.0 5-9 Specific gravity of urine by test strip 1.025 1.016-1.022 Urine protein assay by test strip, semi-quantitative TRACE NEGATIVE Urine glucose detection by automated test strip NE GATIVE NEGATIVE Erythrocytes detection in urine sediment by light micr oscopy TRACE NEGATIVE Urine ketones detection by automated test strip NE GATIVE NEGATIVE Urine nitrite detection by test strip POSITIVE NEGATIVE Urine total bilirubin detection by test strip NEGA TIVE NEGATIVE Urine urobilinogen measurement by automated test strip (mass/volume) 0.2 mg/dL NORMAL Urine leukocyte esterase detection by dipstick 2+ NEGATIVE Automated urine sediment erythrocyte cou nt by microscopy (number/high power field) [HPF] NRG Automated urine sediment leukocyte count by microscopy (number/high power field) [HPF] NRG Bacteria detection in urine sediment by light microsco py 4+ NRG Squamous epithelial cells detection in u rine sediment by light microscopy 5-10 NRG Crystals detection in urine sediment by light microsco py NONE NRG Casts detection in urine sediment by light microscopy NONE NRG Mucus detection in urine sediment by light microscopy LARGE NRG Complete urinalysis with reflex to culture YES NRG Bacterial urine culture - 09/12/18 16:50 Bacterial urine culture [id number] NRG COLONY COUNT >100,000/ML NRG FTX;REPORTABLE SUSCEPTIBILITY REPORTED 09/15/18 10: 05 NRG RML Sensitivity Panel - 09/12/18 16:50 Gentamicin susceptibility test by minimum inhibitory c oncentration <= NRG Trimethoprim/sulfamethoxazole susceptibi lity test by minimum inhibitoryconcentration > NRG Levofloxacin susceptibility test by minimum inhibitory concentration <= NRG Ampicillin susceptibility test by minimum inhibitory c oncentration > NRG Cefazolin susceptibility test by minimum inhibitory co ncentration 2 NRG Ceftriaxone susceptibility test by minimum inhibitory concentration <= NRG Ciprofloxacin susceptibility test by minimum inhibitor y concentration <= NRG Meropenem susceptibility test by minimum inhibitory co ncentration <= NRG Nitrofurantoin susceptibility test by mi nimum inhibitory concentration <= NRG Amoxicillin and clavulanate potassium susc ANTWON = NRG Streptococcus pyogenes antigen detection - 01/12/19 14:20 Streptococcus pyogenes antigen detection POSITIVE NEGATIVE Urine beta human chorionic gonadotropin (hCG) measurement - 01/12/19 14:25 Urine beta human chorionic gonadotropin (hCG) measurem ent NEGATIVE NEGATIVE CULTURE, URINE - 02/27/19 14:01 CULTURE, URINE, ROUTINE SEE NOTE NRG Complete urinalysis with reflex to cultu re - 02/28/19 21:33 Urine color determination YELLOW NRG Urine clarity determination CLOUDY NR G Urine pH measurement by test strip 6.0 5-9 Specific gravity of urine by test strip 1.025 1.016-1.022 Urine protein assay by test strip, semi-quantitative 2+ NEGATIVE Urine glucose detection by automated test strip NE GATIVE NEGATIVE Erythrocytes detection in urine sediment by light micr oscopy 2+ NEGATIVE Urine ketones detection by automated test strip NE GATIVE NEGATIVE Urine nitrite detection by test strip NEGATIVE NEGATIVE Urine total bilirubin detection by test strip NEGA TIVE NEGATIVE Urine urobilinogen measurement by automated test strip (mass/volume) 0.2 mg/dL NORMAL Urine leukocyte esterase detection by dipstick 2+ NEGATIVE Automated urine sediment erythrocyte cou nt by microscopy (number/high power field) NONE NRG Automated urine sediment leukocyte count by microscopy (number/high power field) TNTC NRG Bacteria detection in urine sediment by light microsco py LARGE NRG Squamous epithelial cells detection in u rine sediment by light microscopy 5-10 NRG Crystals detection in urine sediment by light microsco py NONE NRG Casts detection in urine sediment by light microscopy NONE NRG Mucus detection in urine sediment by light microscopy NEGATIVE NRG Complete urinalysis with reflex to culture YES NRG Bacterial urine culture - 02/28/19 21:33 Bacterial urine culture [id number] NRG COLONY COUNT >100,000/ML NRG FTX;REPORTABLE SUSCEPTIBILITY REPORTED 03/03/19 10 :45 NRG Dirithromycin susceptibility test by dis k diffusion - 02/28/19 21:33 Gentamicin susceptibility test by minimum inhibitory c oncentration <= NRG Trimethoprim/sulfamethoxazole susceptibi lity test by minimum inhibitoryconcentration <= NRG Levofloxacin susceptibility test by minimum inhibitory concentration <= NRG Ampicillin susceptibility test by minimum inhibitory c oncentration <= NRG Cefazolin susceptibility test by minimum inhibitory co ncentration <= NRG Ceftriaxone susceptibility test by minimum inhibitory concentration <= NRG Ciprofloxacin susceptibility test by minimum inhibitor y concentration <= NRG Meropenem susceptibility test by minimum inhibitory co ncentration <= NRG Nitrofurantoin susceptibility test by mi nimum inhibitory concentration <= NRG Amoxicillin and clavulanate potassium susc ANTWON <= NRG HCG, QUANTITATIVE - 04/25/19 15:21 HCG, TOTAL, QN <2 mIU/mL NRG Complete urinalysis with reflex to cultu re - 05/02/19 18:40 Urine color determination YELLOW NRG Urine clarity determination SLIGHTLY CLOUDY NRG Urine pH measurement by test strip 6.5 5-9 Specific gravity of urine by test strip 1.025 1.016-1.022 Urine protein assay by test strip, semi-quantitative NEGATIVE NEGATIVE Urine glucose detection by automated test strip NE GATIVE NEGATIVE Erythrocytes detection in urine sediment by light micr oscopy 3+ NEGATIVE Urine ketones detection by automated test strip NE GATIVE NEGATIVE Urine nitrite detection by test strip NEGATIVE NEGATIVE Urine total bilirubin detection by test strip NEGA TIVE NEGATIVE Urine urobilinogen measurement by automated test strip (mass/volume) 0.2 mg/dL < = 1.0 Urine leukocyte esterase detection by dipstick TRA CE NEGATIVE Automated urine sediment erythrocyte cou nt by microscopy (number/high power field) TNTC NRG Automated urine sediment leukocyte count by microscopy (number/high power field) NONE NRG Bacteria detection in urine sediment by light microsco py NEGATIVE NRG Squamous epithelial cells detection in u rine sediment by light microscopy 25-50 NRG Crystals detection in urine sediment by light microsco py NONE NRG Casts detection in urine sediment by light microscopy NONE NRG Mucus detection in urine sediment by light microscopy NEGATIVE NRG Complete urinalysis with reflex to culture NO NRG Urine beta human chorionic gonadotropin (hCG) measurement - 05/02/19 18:40 Urine beta human chorionic gonadotropin (hCG) measurem ent NEGATIVE NEGATIVE Urine beta human chorionic gonadotropin (hCG) measurement - 06/28/19 00:10 Urine beta human chorionic gonadotropin (hCG) measurem ent NEGATIVE NEGATIVE Complete urinalysis with reflex to cultu re - 06/28/19 00:10 Urine color determination YELLOW NRG Urine clarity determination CLOUDY NR G Urine pH measurement by test strip 7.0 5-9 Specific gravity of urine by test strip 1.025 1.016-1.022 Urine protein assay by test strip, semi-quantitative NEGATIVE NEGATIVE Urine glucose detection by automated test strip NE GATIVE NEGATIVE Erythrocytes detection in urine sediment by light micr oscopy NEGATIVE NEGATIVE Urine ketones detection by automated test strip NE GATIVE NEGATIVE Urine nitrite detection by test strip NEGATIVE NEGATIVE Urine total bilirubin detection by test strip NEGA TIVE NEGATIVE Urine urobilinogen measurement by automated test strip (mass/volume) 0.2 mg/dL < = 1.0 Urine leukocyte esterase detection by dipstick NEG ATIVE NEGATIVE Automated urine sediment erythrocyte cou nt by microscopy (number/high power field) NONE NRG Automated urine sediment leukocyte count by microscopy (number/high power field) [HPF] NRG Bacteria detection in urine sediment by light microsco py FEW NRG Squamous epithelial cells detection in u rine sediment by light microscopy 2-5 NRG Crystals detection in urine sediment by light microsco py PRESENT NRG Casts detection in urine sediment by light microscopy NONE NRG Mucus detection in urine sediment by light microscopy NONE NRG Complete urinalysis with reflex to culture YES NRG Amorphous sediment detection in urine sediment by ligh t microscopy MOD MARILIN PHOSPHATE NRG Bacterial urine culture - 06/28/19 00:10 Bacterial urine culture 3 OR MORE NRG COLONY COUNT >100,000/ML NRG FTX;REPORTABLE SUGGESTING PROBABLE COLLECTION NRG FREE TEXT ENTRY 2 CONTAMINATION WITH SKIN ELAINE NRG FREE TEXT ENTRY 3 NO SUSCEPTIBILITY PERFORMED NRG Complete blood count (CBC) with automate d white blood cell (WBC) differential - 06/28/19 00:12 Blood leukocytes automated count (number/volume) 12.8 10*3/uL 4.3-11.0 Blood erythrocytes automated count (number/volume) 5.05 10*6/uL 4.35-5.85 Venous blood hemoglobin measurement (mass/volume) 13.7 g/dL 11.5-16.0 Blood hematocrit (volume fraction) 43 % 35-52 Automated erythrocyte mean corpuscular volume 85 [ foz_us] 80-99 Automated erythrocyte mean corpuscular h emoglobin (mass per erythrocyte) 27 pg 25-34 Automated erythrocyte mean corpuscular h emoglobin concentration measurement (mass/volume) 32 g/dL 32-36 Automated erythrocyte distribution width ratio 14. 3 % 10.0- 14.5 Automated blood platelet count (count/volume) 480 10*3/uL 130-400 Automated blood platelet mean volume measurement 9.4 [foz_us] 7.4-10.4 Automated blood neutrophils/100 leukocytes 76 % 42-75 Automated blood lymphocytes/100 leukocytes 15 % 12-44 Blood monocytes/100 leukocytes 7 % 0-12 Automated blood eosinophils/100 leukocytes 1 % 0-10 Automated blood basophils/100 leukocytes 1 % 0-10 Blood neutrophils automated count (number/volume) 9.7 10*3 1.8-7.8 Blood lymphocytes automated count (number/volume) 2.0 10*3 1.0-4.0 Blood monocytes automated count (number/volume) 0. 9 10*3 0.0-1.0 Automated eosinophil count 0.2 10*3/uL 0 .0-0.3 Automated blood basophil count (count/volume) 0.1 10*3/uL 0.0-0.1 Comprehensive metabolic panel - 06/28/19 00:12 Serum or plasma sodium measurement (moles/volume) 140 mmol/L 135-145 Serum or plasma potassium measurement (moles/volume) 4.3 mmol/L 3.6-5.0 Serum or plasma chloride measurement (moles/volume) 101 mmol/L 98-107 Carbon dioxide 28 mmol/L 21-32 Serum or plasma anion gap determination (moles/volume) 11 mmol/L 5-14 Serum or plasma urea nitrogen measurement (mass/volume ) 10 mg/dL 7-18 Serum or plasma creatinine measurement (mass/volume) 0.69 mg/dL 0.60-1.30 Serum or plasma urea nitrogen/creatinine mass ratio 14 NRG Serum or plasma creatinine measurement w ith calculation of estimated glomerular filtration rate > NRG Serum or plasma glucose measurement (mass/volume) 94 mg/dL 70-105 Serum or plasma calcium measurement (mass/volume) 10.1 mg/dL 8.5-10.1 Serum or plasma total bilirubin measurement (mass/volu me) 0.2 mg/dL 0.1-1.0 Serum or plasma alkaline phosphatase anali surement (enzymatic activity/volume) 78 U/L 40-136 Serum or plasma aspartate aminotransfera se measurement (enzymatic activity/volume) 38 U/L 5-34 Serum or plasma alanine aminotransferase measurement (enzymatic activity/volume) 56 U/L 0-55 Serum or plasma protein measurement (mass/volume) 7.4 g/dL 6.4-8.2 Serum or plasma albumin measurement (mass/volume) 4.6 g/dL 3.2-4.5 Lipase - 06/28/19 00:12 Lipase 32 U/L 8-78 Encounters ACCT No. Visit Date/Time Discharge Status Pt. Type Provider Facility Loc./Unit Complaint [id number] 05/30/2019 15:45:00 05/30/2019 23:59: 59 [facility] Outpatient [facility] [id number] 04/25/2019 15:15:00 Document Registration [id number] 02/27/2019 13:20:00 Document Registration [id number] 07/20/2019 00:01:00 020 00:15:00 DIS Emergency JEREMIAS COBOS DO Via [facility] ER FS FLU,VOMITING [id number] 07/13/2019 13:02:00 020 14:02:00 DIS Outpatient LAURI LOPEZ MD Via [facility] ER FS COUGH,LOW GRADE FEVER,B ESTELA CHILLS X1WK [id number] 05/02/2019 18:31:00 20:02:00 DIS Emergency BENJAMIN SIMPSON MD Via [facility] ER FS STOMACHE/VAGINA BLEEDIN G [id number] 02/28/2019 21:22:00 22:05:00 DIS Outpatient TANA OCAMPO DO Via [facility] ER FS BURNING W URINATION, VA GINAL BLEEDING [id number] 01/12/2019 14:13:00 15:10:00 DIS Emergency MARYSOL HUNTER DO Via [facility] ER FS SORE THROAT [id number] 09/12/2018 16:49:00 17:54:00 DIS Emergency IRAM DREW DO [facility] ER FS STOMACH PAINS, NAUSEA [id number] 08/07/2018 00:40:00 01:13:00 DIS Emergency IRAM DREW DO Via [facility] ER FS RIGHT KNEE PAIN AND SWE LLING [id number] 2019 00:19:00 Document Registration
== END 2019-07-20 00:15 | disposition home or self-care (01) ==
LOC: ER FS 07-20 00:01 → EDUNIT# 07-20 03:27
DX: J06.9 Acute upper respiratory infection, unspecified (principal); R11.2 Nausea with vomiting, unspecified
CPT/HCPCS: 99283

== ENCOUNTER 2019-11-11 16:36 | Emergency (ER) | payer MEDICAID ==
--- OUTSIDE RECORDS SUMMARY | 2019-11-11 16:42 | XMS REPORT | Continuity of Care Document ---
Author Organization Unknown Address Unknown Phone Unavailable Allergies Active Description Code Type Severity Reaction Onset Reported/Identified Relationship to Patient Clinical Status Yes No Known Drug Allergies [id number] Drug Allergy Unknown N/A 08/07/2018 Medications There is no data. Problems Date Dx Coded Attending Type Code Diagnosis Diagnosed By 08/07/2018 BERTHA DREW DOED T Ot F17.210 NICOTINE [...] N30. 90 CYSTITIS, UNSPECIFIED WITHOUT HEMATURIA 09/12/2018 BERTHA DREW DOED T Ot R10. 13 EPIGASTRIC PAIN 09/15/2018 IRAM DREW DO T Ot F17.210 NICOTINE DEPENDENCE, CIGARETTES, UNCOMPL 09/15/2018 RAJENDRA RICNON IRAM T Ot N30. 90 CYSTITIS, UNSPECIFIED WITHOUT HEMATURIA 09/15/2018 BERTHA DREW DOED T Ot R10. 13 EPIGASTRIC PAIN 01/12/2019 [...] OCAMPO DO, TANA Ot R30.0 DYSURIA 03/07/2019 OCAMPO DO, TANA Ot Z11.3 ENCNTR SCREEN FOR INFECTIONS W SEXL MODE 03/08/2019 OCAMPO DO, TANA Ot R30.0 DYSURIA 03/08/2019 OCAMPO DO, TANA Ot Z11.3 ENCNTR SCREEN FOR INFECTIONS W SEXL MODE 05/02/2019 TATIANA SUAZO, BENJAMIN Mojica Ot F17.2 10 NICOTINE DEPENDENCE, CIGARETTES, UNCOMPL 05/02/2019 TATIANA SUAZO, BENJAMIN Mojica Ot N92.1 EXCESSIVE AND FREQUENT MENSTRUATION WITH 05/02/2019 TATIANA SUAZO, BENJAMIN Mojica Ot N93.9 ABNORMAL UTERINE AND VAGINAL BLEEDING, U 2019 Ot R10.9 UNSP ECIFIED ABDOMINAL PAIN 06/30/2019 Ot R10.9 UNSP ECIFIED ABDOMINAL PAIN 07/13/2019 JOHN SUAZO, LAURI Jordan Ot R05 COUGH 07/13/2019 JOHN SUZAO, LAURI Jordan Ot Z77. 22 CNTCT W AND EXPSR TO ENVIRON TOBACCO SMO 07/18/2019 JOHN SUAZO, LAURI Jordan Ot R05 COUGH 07/18/2019 JOHN SUAZO, LAURI Jordan Ot Z77. 22 CNTCT W AND EXPSR TO ENVIRON TOBACCO SMO 07/20/2019 ROVENSTINE DO, JEREMIAS L Ot J06.9 ACUTE UPPER RESPIRATORY INFECTION, UNSPE 07/20/2019 ROVENSTINE DO, JEREMIAS L Ot R11.10 VOMITING, UNSPECIFIED 07/20/2019 ROVENSTINE DO, JEREMIAS L Ot R11.2 NAUSEA WITH VOMITING, UNSPECIFIED 07/21/2019 BLANCHARD DO, TANA Ot R30.0 DYSURIA 07/21/2019 BLANCHARD DO, TANA Ot Z11.3 ENCNTR SCREEN FOR INFECTIONS W SEXL MODE 08/02/2019 ROVENSTINE DO, JEREMIAS L Ot J06.9 ACUTE UPPER RESPIRATORY INFECTION, UNSPE 08/02/2019 ROVENSTINE DO, JREEMIAS L Ot R11.10 VOMITING, UNSPECIFIED 08/02/2019 ROVENSTINE DO, JEREMIAS L Ot R11.2 NAUSEA WITH VOMITING, UNSPECIFIED Procedures There is no data. Results Test [...] culture - 09/12/18 16:50 Bacterial urine culture [id number] NRG COLONY COUNT >100,000/ML NRG FTX;REPORTABLE SUSCEPTIBILITY REPORTED 09/15/18 10: [facility] - 09/12/18 16:50 Gentamicin susceptibility [...] culture - 02/28/19 21:33 Bacterial urine culture [id number] NRG COLONY COUNT >100,000/ML NRG FTX;REPORTABLE SUSCEPTIBILITY [...] concentration <= NRG Amoxicillin and clavulanate potassium [facility] ANTWON <= NRG HCG, QUANTITATIVE - 04/25/19 [...] - 06/28/19 00:12 Lipase 32 U/L 8-78 HCG, QUANTITATIVE - 08/28/19 10:53 HCG, TOTAL, QN 132 mIU/mL NRG HCG, QUANTITATIVE - 08/30/19 10:45 HCG, TOTAL, QN 445 mIU/mL NRG SUREPATH PAP RFX HPV mRNA E6/E7 - 08:42 CLINICAL INFORMATION: NRG LMP: NRG PREV. PAP: NRG PREV. BX: NRG SOURCE: Cervix NRG STATEMENT OF ADEQUACY: NRG INTERPRETATION/RESULT: NRG BATTERY TEST ENGINEER: NRG REVIEW BATTERY TEST ENGINEER: NRG COMMENT NRG BLOOD TPYE/RH FACTOR - 10/10/19 11:26 ABO GROUP A NRG RH TYPE RH(D) NEGATIVE NRG ANTIBODY SCREEN - 10/10/19 11:26 ANTIBODY SCREEN, RBC W/REFL ID, TITER AND AG NO ANTIBODIES DETECTED NRG Encounters ACCT No. Visit Date/Time Discharge Status Pt. Type Provider Facility Loc./Unit Complaint [id number] 10/25/2019 11:15:00 10/25/2019 23:59: 59 [facility] [id number] 10/10/2019 11:15:00 Document Registration [id number] 09/27/2019 10:30:00 Document Registration [id number] 08/30/2019 10:45:00 Document Registration [id number] 08/28/2019 11:00:00 Document Registration [id number] 04/25/2019 15:15:00 Document Registration [id number] 02/27/2019 13:20:00 Document Registration [id number] 07/20/2019 00:01:00 020 00:15:00 DIS Emergency JEREMIAS COBOS DO [facility] ER FS FLU,VOMITING [id number] 07/13/2019 13:02:00 020 14:02:00 DIS Emergency LAURI LOPEZ MD [facility] ER FS COUGH,LOW GRADE FEVER,B ESTELA CHILLS X1WK [id number] 05/02/2019 18:31:00 019 20:02:00 DIS Emergency BENJAMIN SIMPSON MD [facility] ER FS STOMACHE/VAGINA BLEEDIN G [id number] 02/28/2019 21:22:00 22:05:00 DIS Emergency TANA OCAMPO DO [facility] ER FS BURNING W URINATION, VA GINAL BLEEDING [id number] 01/12/2019 14:13:00 15:10:00 DIS Emergency MARYSOL HUNTER DO [facility] ER FS SORE THROAT [id number] 09/12/2018 16:49:00 17:54:00 DIS Emergency IRAM DREW DO [facility] ER FS STOMACH PAINS, NAUSEA [id number] 08/07/2018 00:40:00 01:13:00 DIS Emergency IRAM DREW DO [facility] ER FS RIGHT KNEE PAIN AND SWE LLING [id number] 2019 00:19:00 Document Registration
--- NOTE | 2019-11-11 16:50 | NUR ---
Pt was being COVID tested r/t cough. Unknown fever as has not been testing. Reports hot flashing with .
--- NOTE | 2019-11-11 16:50 | NUR ---
Began swabbing for specimens, pt grabs nurses hand each time to jerk swab out. Re-try performed each time
--- NOTE | 2019-11-11 16:59 | ED Cough/URI ---
General Chief Complaint: Cough/Cold/Flu Symptoms Stated Complaint: COUGH Source: patient Exam Limitations: no limitations History of Present Illness Date Seen by Provider: Nov 11, 2019 Time Seen by Provider: 16:45 Initial Comments The patient is a 24-year-old obese female who is approximately 4 months and presents for evaluation of cough over the last week. She states that occasionally she has coughed to the point that she has vomited. She has had a s ubjective fever and chills but has not checked her temperature. She denies any shortness of breath at this time or any pleuritic chest discomfort. She smokes 2 packs a day and I counseled her on quitting smoking at least while she is . The patient states that she normally smokes both cigarettes and marijuana and that someone told her that she should not be smoking marijuana all she was so she stopped that. She denies abdominal or back pain, hemoptysis, lower extremity pain or edema, urinary symptoms, dizziness or syncope. She is alert and oriented 4, calm, coughing frequently, but appears to be in no distress at this time. She does report a sore throat as well. Timing/Duration: just prior to arrival Severity/Quality: dry cough Prior Episodes/Possible Cause: no prior episodes Modifying Factors: Improves With Coughing Associated Symptoms: fever/chills, sore throat Allergies and Home Medications Allergies Coded Allergies: No Known Drug Allergies (Unverified , 08/07/18) Home Medications Amoxicillin 500 Mg Capsule, 500 MG PO BID Prescribed by: DALE GREGG on 01/12/19 1503 Benzonatate 100 Mg Capsule, 100 MG PO Q8H Prescribed by: LAURI LOPEZ on 07/13/19 1351 Cephalexin 500 Mg Tablet, 500 MG PO BID Prescribed by: IRAM DREW on 09/12/18 1744 Naproxen 500 Mg Tablet, 500 MG PO BID Prescribed by: BENJAMIN SIMPSON on 05/02/191999 Tramadol HCl 50 Mg Tablet, 100 MG PO Q8H PRN for PAIN Prescribed by: IRAM DREW on 08/07/18 0105 Patient Home Medication List Home Medication List Reviewed: Yes Review of Systems Review of Systems Constitutional: chills, fever EENTM: throat pain Respiratory: cough Cardiovascular: no symptoms reported Gastrointestinal: no symptoms reported Genitourinary: no symptoms reported Musculoskeletal: no symptoms reported Skin: no symptoms reported Psychiatric/Neurological: No Symptoms Reported Hematologic/Lymphatic: No Symptoms Reported Immunological/Allergic: no symptoms reported All Other Systems Reviewed Negative Unless Noted: Yes Past Uonoelh-Vmcaud-Zekusx Hx Past Med/Social Hx: Reviewed Nursing Past Med/Soc Hx Patient Social History Drug of Choice: marijuana Type Used: Cigarettes 2nd Hand Smoke Exposure: Yes Recent Foreign Travel: No Contact w/Someone Who Travel: No Recent Hopitalizations: No Seasonal Allergies Seasonal Allergies: No Past Medical History Surgeries: No Respiratory: No Cardiac: No Neurological: No Genitourinary: No Gastrointestinal: No Musculoskeletal: No Endocrine: No HEENT: No Cancer: No Did You Recieve Any Treatments: No Psychosocial: No Integumentary: No Blood Disorders: No Adverse Reaction/Blood Tranf: No Physical Exam Vital Signs - First Documented 11/11/19 16:45 Temp 36.7 Pulse 112 Resp 20 B/P (MAP) 109/66 (80) Pulse Ox 98 O2 Delivery Room Air Capillary Refill : Height: 5'0" Weight: 150lbs. oz. 68.847705yl; 36.00 BMI Method:Stated General Appearance: WD/WN, no apparent distress, obese Eyes: Bilateral Eye Normal Inspection, Bilateral Eye PERRL, Bilateral Eye EOMI HEENT: PERRL/EOMI, TMs normal Respiratory: chest non-tender, lungs clear, normal breath sounds, no respiratory distress, no accessory muscle use Cardiovascular: regular rate, rhythm, no edema, no JVD Gastrointestinal: normal bowel sounds, non tender, soft, other (gravid abdomen consistent with dates) Extremities: normal range of motion, non-tender, normal inspection, no pedal edema Neurologic/Psychiatric: social service director II-XII nml as tested, no motor/sensory deficits, alert, normal mood/affect, oriented x 3 Skin: normal color, warm/dry Progress/Results/Core Measures Suspected Sepsis SIRS Temperature: Pulse: Respiratory Rate: Blood Pressure / Mean: Results/Orders Lab Results Laboratory Tests Test 11/11/19 16:50 Range/Units Group A Streptococcus Screen NEGATIVE NEGATIVE My Orders Orders - DALE GREGG DO Rapid Strep A Screen (11/11/19 16:52) Coronavirus Sars-Cov-2 So 2019 (11/11/19 16:52) Vital Signs/I&O 11/11/19 16:45 Temp 36.7 Pulse 112 Resp 20 B/P (MAP) 109/66 (80) Pulse Ox 98 O2 Delivery Room Air Capillary Refill : Progress Note : Progress Note @1715 - advised the patient to take the prescribed medicine as directed. Advised the patient to stop smoking cigarettes immediately as she is and this could cause harm to her baby. Advised patient to stay away from others that she has had a coronavirus testing today which may take a few days to result. Advised the patient to return to the emergency Department immediately for difficult breathing, new or worsening symptoms. Departure Impression Primary Impression: Cough Additional Impressions: Viral pharyngitis Tobacco abuse Disposition: HOME, SELF-CARE Condition: Stable Departure-Patient Inst. Decision time for Depature: 17:22 Referrals: NO,LOCAL PHYSICIAN (PCP) Primary Care Physician [facility] Patient Instructions: Cough, Adult (DC), Quitting Smoking, Viral Pharyngitis (DC), - The Fourth Month Add. Discharge Instructions: Take the prescribed medicine as directed. Follow-up with your doctor in the next 1-2 days. Return to the Emergency Department immediately for new or worsening symptoms. You were tested for the coronavirus today and results could take a few days to come back simply stay away from other people like he still have a cough and coronavirus-like symptoms. Call back to the emergency department in 48 hours if you have not heard your results. Scripts Azithromycin (Azithromycin) 250 Mg Tablet 250 MG PO UD for Cough, #6 TAB TAKE 2 TABLETS ON DAY ONE THEN TAKE 1 TABLET DAILY FOR FOUR MORE DAYS Prov: DALE GREGG DO 11/11/19 DALE GREGG DO Nov 11, 2019 16:59
[2019-11-11] MEDS ORDERED: AZIT250T12 PO (17:23)
[2019-11-11 17:30] VITALS: BP 105/70
== END 2019-11-11 17:30 | disposition home or self-care (01) ==
LOC: EDUNIT# 16:36 → ER FS 16:38
DX: O99.512 Diseases of the respiratory system complicating pregnancy, second trimester (principal); J02.9 Acute pharyngitis, unspecified; O99.332 Smoking (tobacco) complicating pregnancy, second trimester; F17.210 Nicotine dependence, cigarettes, uncomplicated; Z3A.00 Weeks of gestation of pregnancy not specified
CPT/HCPCS: 87430; 99284; U0002; 87635

== ENCOUNTER 2020-01-01 19:31 | Emergency (ER) | payer MEDICAID ==
[~2020-01-01] VITALS: Ht 152.4 cm; Wt 93.9 kg
[~2020-01-01 19:31] MED LIST changes: +AZIT250T12 PO
--- OUTSIDE RECORDS SUMMARY | 2020-01-01 19:38 | XMS REPORT | Continuity of Care Document ---
Author Organization Unknown Address Unknown Phone Unavailable Allergies Active Description Code Type Severity Reaction Onset Reported/Identified Relationship to Patient Clinical Status Yes No Known Drug Allergies [id number] Drug Allergy Unknown N/A 08/07/2018 Medications There [...] LAURI Jordan Ot R05 COUGH 07/13/2019 JOHN SUAZO, LAURI Jordan Ot Z77. 24 [...] Ot R11.2 NAUSEA WITH VOMITING, UNSPECIFIED 07/21/2019 OCAMPO DO, TANA Ot R30.0 DYSURIA 07/21/2019 OCAMPO DO, TANA Ot Z11.3 ENCNTR SCREEN FOR INFECTIONS W SEXL MODE 08/02/2019 ROVENSTINE DO, JEREMIAS L Ot J06.9 ACUTE UPPER RESPIRATORY INFECTION, UNSPE 08/02/2019 ROVENSTINE DO, JEREMIAS L Ot R11.10 VOMITING, UNSPECIFIED 08/02/2019 ROVENSTINE DO, JEREMIAS L Ot R11.2 NAUSEA WITH VOMITING, UNSPECIFIED 11/11/2019 MARYSOL HUNTER DO Ot F17.210 NICOTINE DEPENDENCE, CIGARETTES, UNCOMPL 11/11/2019 MARYSOL HUNTER DO Ot J02. 9 ACUTE PHARYNGITIS, UNSPECIFIED 11/11/2019 MARYSOL HUNTER DO Ot O99.332 SMOKING (TOBACCO) COMPLICATING 11/11/2019 MARYSOL HUNTER DO Ot O99.512 DISEASES OF THE RESP SYS COMP , 11/11/2019 MARYSOL HUNTER DO Ot R05 COUGH 11/11/2019 MARYSOL HUNTER DO Ot Z3A. 00 WEEKS OF GESTATION OF NOT SPEC 11/14/2019 MARYSOL HUNTER DO Ot F17.210 NICOTINE DEPENDENCE, CIGARETTES, UNCOMPL 11/14/2019 MARYSOL HUNTER DO Ot J02. 9 ACUTE PHARYNGITIS, UNSPECIFIED 11/14/2019 MARYSOL HUNTER DO Ot O99.332 SMOKING (TOBACCO) COMPLICATING 11/14/2019 MARYSOL HUNTER DO Ot O99.512 DISEASES OF THE RESP SYS COMP , 11/14/2019 MARYSOL HUNTER DO Ot R05 COUGH 11/14/2019 DALE MARYSOL RINCON Ot Z3A. 00 WEEKS OF GESTATION OF NOT SPEC Procedures There is no data. Results Test [...] culture - 09/12/18 16:50 Bacterial urine culture [id number] NRG COLONY COUNT >100,000/ML NRG FTX;REPORTABLE SUSCEPTIBILITY [...] culture - 02/28/19 21:33 Bacterial urine culture [id number] NRG COLONY COUNT >100,000/ML NRG FTX;REPORTABLE SUSCEPTIBILITY [...] FREE TEXT ENTRY 3 NO SUSCEPTIBILITY PERFORMED NR Complete blood count (CBC) with automate d [...] Cervix NRG STATEMENT OF ADEQUACY: NRG INTERPRETATION/RESULT: NR MEDICAL SCIENTIFIC OFFICER: NR REVIEW MEDICAL SCIENTIFIC OFFICER: NRG COMMENT NRG BLOOD TPYE/RH FACTOR - 10/10/19 11:26 ABO GROUP A NRG RH TYPE RH(D) NEGATIVE NRG ANTIBODY SCREEN - 10/10/19 11:26 ANTIBODY SCREEN, RBC W/REFL ID, TITER AND AG NO ANTIBODIES DETECTED NRG Streptococcus pyogenes antigen detection - 11/11/19 16:50 Streptococcus pyogenes antigen detection NEGATIVE NEGATIVE Coronavirus SARS-CoV-2 SO 2019 - 06/20/2 0 16:50 Coronavirus Ab [Units/volume] in Serum Negative Negative Bacterial throat culture - 11/11/19 16:5 0 Bacterial throat culture NBS NRG Encounters ACCT No. Visit Date/Time Discharge Status Pt. Type Provider Facility Loc./Unit Complaint [id number] 12/26/2019 13:00:00 12/26/2019 23:59: 59 [facility] [id number] 10/10/2019 11:15:00 Document Registration [id number] 09/27/2019 10:30:00 Document Registration [id number] 08/30/2019 10:45:00 Document Registration [id number] 08/28/2019 11:00:00 Document Registration [id number] 04/25/2019 15:15:00 Document Registration [id number] 02/27/2019 13:20:00 Document Registration [id number] 11/11/2019 16:38:00 17:30:00 DIS Emergency MARYSOL HUNTER DO [facility] ER FS COUGH [id number] 07/20/2019 00:01:00 020 00:15:00 DIS Emergency ROVENSTJEREMIAS ISAACS DO [facility] ER FS FLU,VOMITING [id number] 07/13/2019 13:02:00 14:02:00 DIS Emergency LAURI LOPEZ MD [facility] ER FS COUGH,LOW GRADE FEVER,B ESTELA CHILLS X1WK [id number] 05/02/2019 18:31:00 20:02:00 DIS Emergency BENJAMIN SIMPSON MD [facility] ER FS STOMACHE/VAGINA BLEEDIN G [id number] 02/28/2019 21:22:00 22:05:00 DIS Emergency TANA OCAMPO DO [facility] ER FS BURNING W URINATION, VA GINAL BLEEDING [id number] 01/12/2019 14:13:00 15:10:00 DIS Emergency MARYSOL HUNTER DO [facility] ER FS SORE THROAT [id number] 09/12/2018 16:49:00 04/22/2 019 17:54:00 DIS Emergency IRAM DREW DO [facility] ER FS STOMACH PAINS, NAUSEA [id number] 08/07/2018 00:40:00 019 01:13:00 DIS Emergency IRAM DREW DO [facility] ER FS RIGHT KNEE PAIN AND SWE LLING [id number] 2019 00:19:00 Document Registration
--- NOTE | 2020-01-01 19:56 | ED General ---
General Stated Complaint: SUICIDAL THOUGHTS History of Present Illness Date Seen by Provider: Jan 01, 2020 Time Seen by Provider: 19:40 Initial Comments This patient is a 24-year-old female presents to the emergency department with complaints of anger. Patient states since about 6 months she is a with 2 other small children. Patient states she has long history of anger issues. He does not currently take any medications. Patient states she just gets frustrated and wants to get things. Patient denies suicidal ideation. Patient's here requesting to speak to someone about how to deal with her anger. Patient has not discussed this with her PCP or PHLEBOTOMIST. We did discuss living with options. We'll do a medical screening exam and evaluate treat further if needed. We'll try to arrange for behavioral health services to evaluate patient to telemedicine Timing/Duration: Intermittent Severity: Mild Associated Systoms: Denies Symptoms Allergies and Home Medications Allergies Coded Allergies: latex (Verified Allergy, Unknown, 01/01/20) Home Medications No Active Prescriptions or Reported Meds Patient Home Medication List Home Medication List Reviewed: Yes Review of Systems Review of Systems Constitutional: No no symptoms reported, No see HPI, No chills, No diaphoresis, No dizziness, No fever, No malaise, No weakness, No weight gain, No weight loss, No other EENTM: No see HPI, No no symptoms reported, No ear discharge, No hearing loss, No ear pain, No blurred vision, No double vision, No eye pain, No tearing, No vision loss, No dental problems, No hoarseness, No mouth pain, No mouth swelling, No epistaxis, No nose congestion, No nose pain, No throat pain, No throat swelling, No other Respiratory: No no symptoms reported, No see HPI, No cough, No dyspnea on exertion, No hemoptysis, No orthopnea, No phlegm, No short of breath, No stridor, No wheezing, No other Cardiovascular: No no symptoms reported, No see HPI, No chest pain, No edema, No Hx of Intervention, No palpitations, No syncope, No vascular heart diseas, No other Gastrointestinal: No RUQ, No LUQ, No RLQ, No LLQ, No no symptoms reported, No see HPI, No abdominal pain, No constipation, No diarrhea, No dysphagia, No hematemesis, No heartburn, No jaundice, No loss of appetite, No melena, No nausea, No vomiting, No other Genitourinary: No no symptoms reported, No see HPI, No decreased output, No discharge, No dysuria, No frequency, No hematuria, No hesitancy, No incontinence, No nocturia, No pain, No other : Yes Musculoskeletal: No no symptoms reported, No see HPI, No back pain, No gout, No joint pain, No joint swelling, No muscle pain, No muscle stiffness, No muscle cramps, No muscle twitching, No muscle weakness, No neck pain, No other Skin: No no symptoms reported, No see HPI, No change in color, No change in hair/nails, No dryness, No hx of skin cancer, No lesions, No lumps, No pruritus, No rash, No other Psychiatric/Neurological: Denies No Symptoms Reported, Denies See HPI, Denies Anxiety; Depressed, Emotional Problems; Denies Headache, Denies Numbness, Denies Paresthesia, Denies Pre-Existing Deficit, Denies Seizure, Denies Tingling, Denies Tremors, Denies Weakness, Denies Other All Other Systems Reviewed Negative Unless Noted: Yes Past Xxxitne-Crxjdb-Stofco Hx Patient Social History Drug of Choice: marijuana Type Used: Cigarettes 2nd Hand Smoke Exposure: Yes Recent Foreign Travel: No Contact w/Someone Who Travel: No Recent Hopitalizations: No Seasonal Allergies Seasonal Allergies: No Past Medical History Surgeries: No Respiratory: Yes Asthma Cardiac: No Neurological: No Genitourinary: No Gastrointestinal: No Musculoskeletal: No Endocrine: No HEENT: No Cancer: No Did You Recieve Any Treatments: No Psychosocial: No Integumentary: No Blood Disorders: No Adverse Reaction/Blood Tranf: No Physical Exam Vital Signs Vital Signs - First Documented 01/01/20 19:56 Temp 36.5 Pulse 113 Resp 18 B/P (MAP) 119/78 (92) O2 Delivery Room Air Capillary Refill : Height, Weight, BMI Height: 5'0" Weight: 150lbs. oz. 68.336422cc; 36.00 BMI Method:Stated General Appearance: No Apparent Distress, WD/WN Respiratory: Chest Non Tender, Lungs Clear, Normal Breath Sounds, No Accessory Muscle Use, No Respiratory Distress Cardiovascular: Regular Rate, Rhythm, No Edema, No Gallop, No JVD, No Murmur, Normal Peripheral Pulses Gastrointestinal: Normal Bowel Sounds, No Organomegaly, No Pulsatile Mass, Non Tender, Soft Extremity: Normal Capillary Refill, Normal Inspection, Normal Range of Motion, Non Tender, No Calf Tenderness, No Pedal Edema Neurologic/Psychiatric: Alert, Oriented x3, No Motor/Sensory Deficits, Normal Mood/Affect Skin: Normal Color, Warm/Dry Progress/Results/Core Measures Suspected Sepsis SIRS Temperature: Pulse: Respiratory Rate: Laboratory Tests 01/01/20 20:10: White Blood Count 9.4 Blood Pressure / Mean: Laboratory Tests 01/01/20 20:10: Creatinine 0.48L, Platelet Count 243, Total Bilirubin 0.2 Results/Orders Lab Results Laboratory Tests Test 01/01/20 20:10 01/01/20 20:12 Range/Units White Blood Count 9.4 4.3-11.0 10^3/uL Red Blood Count 4.37 4.35-5.85 10^6/uL Hemoglobin 12.0 11.5-16.0 G/DL Hematocrit 36 35-52 % Mean Corpuscular Volume 83 80-99 FL Mean Corpuscular Hemoglobin 27 25-34 PG Mean Corpuscular Hemoglobin Concent 33 32-36 G/DL Red Cell Distribution Width 14.5 10.0-14.5 % Platelet Count 243 130-400 10^3/uL Mean Platelet Volume 9.8 7.4-10.4 FL Neutrophils (%) (Auto) 79 H 42-75 % Lymphocytes (%) (Auto) 13 12-44 % Monocytes (%) (Auto) 6 0-12 % Eosinophils (%) (Auto) 1 0-10 % Basophils (%) (Auto) 0 0-10 % Neutrophils # (Auto) 7.4 1.8-7.8 X 10^3 Lymphocytes # (Auto) 1.2 1.0-4.0 X 10^3 Monocytes # (Auto) 0.6 0.0-1.0 X 10^3 Eosinophils # (Auto) 0.1 0.0-0.3 10^3/uL Basophils # (Auto) 0.0 0.0-0.1 10^3/uL Sodium Level 137 135-145 MMOL/L Potassium Level 3.5 L 3.6-5.0 MMOL/L Chloride Level 106 98-107 MMOL/L Carbon Dioxide Level 21 21-32 MMOL/L Anion Gap 10 5-14 MMOL/L Blood Urea Nitrogen 8 7-18 MG/DL Creatinine 0.48 L 0.60-1.30 MG/DL Estimat Glomerular Filtration Rate > 60 BUN/Creatinine Ratio 17 Glucose Level 112 H 70-105 MG/DL Calcium Level 9.3 8.5-10.1 MG/DL Corrected Calcium 9.5 8.5-10.1 MG/DL Total Bilirubin 0.2 0.1-1.0 MG/DL Aspartate Amino Transf (AST/SGOT) 17 5-34 U/L Alanine Aminotransferase (ALT/SGPT) 26 0-55 U/L Alkaline Phosphatase 69 40-136 U/L Total Protein 6.4 6.4-8.2 GM/DL Albumin 3.8 3.2-4.5 GM/DL Salicylates Level < 5.0 L 5.0-20.0 MG/DL Acetaminophen Level < 10 L 10-30 UG/ML Serum Alcohol < 10 <10 MG/DL Urine Color YELLOW Urine Clarity CLEAR Urine pH 6.5 5-9 Urine Specific [place] 1.025 H 1.016-1.022 Urine Protein NEGATIVE NEGATIVE Urine Glucose (UA) NEGATIVE NEGATIVE Urine Ketones NEGATIVE NEGATIVE Urine Nitrite NEGATIVE NEGATIVE Urine Bilirubin NEGATIVE NEGATIVE Urine Urobilinogen 0.2 < = 1.0 MG/DL Urine Leukocyte Esterase 1+ H NEGATIVE Urine RBC (Auto) NEGATIVE NEGATIVE Urine RBC NONE /HPF Urine WBC 2-5 /HPF Urine Squamous Epithelial Cells 5-10 /HPF Urine Crystals PRESENT H /LPF Urine Amorphous Sediment FEW MARILIN URATES H /LPF Urine Bacteria TRACE /HPF Urine Casts NONE /LPF Urine Mucus SMALL H /LPF Urine Culture Indicated NO Urine Opiates Screen NEGATIVE NEGATIVE Urine Oxycodone Screen NEGATIVE NEGATIVE Urine Methadone Screen NEGATIVE NEGATIVE Urine Propoxyphene Screen NEGATIVE NEGATIVE Urine Barbiturates Screen NEGATIVE NEGATIVE Ur Tricyclic Antidepressants Screen NEGATIVE NEGATIVE Urine Phencyclidine Screen NEGATIVE NEGATIVE Urine Amphetamines Screen NEGATIVE NEGATIVE Urine Methamphetamines Screen NEGATIVE NEGATIVE Urine Benzodiazepines Screen NEGATIVE NEGATIVE Urine Cocaine Screen NEGATIVE NEGATIVE Urine Cannabinoids Screen NEGATIVE NEGATIVE My Orders Orders - EYAD CARRANZA MD Cbc With Automated Diff (01/01/20 19:50) Comprehensive Metabolic Panel (01/01/20 19:50) Drug Screen Stat (Urine) (01/01/20 19:50) Acetaminophen (01/01/20 19:50) Alcohol (01/01/20 19:50) Urinalysis (01/01/20 19:50) Thyroid Stimulating Hormone (01/01/20 19:50) Salicylate (01/01/20 19:50) Ekg Tracing (01/01/20 19:50) Vital Signs/I&O 01/01/20 19:56 Temp 36.5 Pulse 113 Resp 18 B/P (MAP) 119/78 (92) O2 Delivery Room Air Capillary Refill : Progress Note : Time: 21:55 Progress Note Telemedicine behavioral health services declined to further evaluate patient. They state the patient does not meet criteria for any inpatient evaluation. They provided patient with information of follow-up outpatient. Patient states understanding patient will also need follow-up with her primary care physician or PHLEBOTOMIST for any further evaluation medication for her anger issues. Patient is discharged home ECG Initial ECG Impression Date: Jan 01, 2020 Initial ECG Impression Time: 19:59 Initial ECG Rate: 97 Initial ECG Rhythm: Normal Sinus Initial ECG Impression: Normal Comment Normal sinus rhythm heart rate 97 Departure Impression Primary Impression: Depression Additional Impression: Irritability and anger Disposition: 01 HOME, SELF-CARE Condition: Stable Departure-Patient Inst. Decision time for Depature: 21:56 Referrals: NO,LOCAL PHYSICIAN (PCP) Primary Care Physician GRACIE MONGE DO Add. Discharge Instructions: Follow-up with your primary care physician or PHLEBOTOMIST and discuss your issues with anger and irritability. Follow-up with behavioral services as instructed by nursing staff to get out patient therapy. Try to avoid smoking while . Scripts No Active Prescriptions or Reported Meds EYAD CARRANZA MD Jan 01, 2020 19:56
[2020-01-01 20:29] LABS: COLOR,URINE YELLOW
[2020-01-01 20:30] LABS: WHITE BLOOD COUNT 9.4 10^3/uL (4.3-11.0)
[2020-01-01 20:30] LABS: AMORPHOUS SEDIMENT,UR FEW AMOR URATES /LPF; BACTERIA,URINE TRACE /HPF; BILIRUBIN,URINE NEGATIVE (NEGATIVE); CLARITY,URINE CLEAR; GLUCOSE, URINE (UA) NEGATIVE (NEGATIVE); KETONES,URINE NEGATIVE (NEGATIVE); LEUKOCYTE ESTERASE ,URINE 1+ (NEGATIVE); NITRITE,URINE NEGATIVE (NEGATIVE); PH,URINE 6.5 (5-9); PROTEIN,URINE NEGATIVE (NEGATIVE)
[2020-01-01 20:31] LABS: BASOPHILS % (AUTO) 0 % (0-10); EOSINOPHILS # (AUTO) 0.1 10^3/uL (0.0-0.3); EOSINOPHILS % (AUTO) 1 % (0-10); HEMATOCRIT 36 % (35-52); LYMPHOCYTES # (AUTO) 1.2 X 10^3 (1.0-4.0); LYMPHOCYTES % (AUTO) 13 % (12-44); MEAN CORPUSCULAR HEMOGLOBIN 27 PG (25-34); MEAN CORPUSCULAR HGB CONC 33 G/DL (32-36); MEAN CORPUSCULAR VOLUME 83 FL (80-99); MEAN PLATELET VOLUME 9.8 FL (7.4-10.4); MONOCYTES # (AUTO) 0.6 X 10^3 (0.0-1.0); MONOCYTES % (AUTO) 6 % (0-12); NEUTROPHILS # (AUTO) 7.4 X 10^3 (1.8-7.8); NEUTROPHILS % (AUTO) 79 % (42-75); PLATELET COUNT 243 10^3/uL (130-400); RED CELL DISTRIBUTION WIDTH 14.5 % (10.0-14.5)
[2020-01-01 20:37] LABS: AMPHETAMINE SCREEN, URINE NEGATIVE (NEGATIVE); BARBITURATE SCREEN URINE NEGATIVE (NEGATIVE); BENZODIAZEPINES SCREEN URINE NEGATIVE (NEGATIVE); CANNABINOID SCREEN, URINE NEGATIVE (NEGATIVE); COCAINE SCREEN URINE NEGATIVE (NEGATIVE); METHADONE STAT NEGATIVE (NEGATIVE); METHAMPHETAMINE SCREEN URINE S NEGATIVE (NEGATIVE); OPIATE SCREEN URINE NEGATIVE (NEGATIVE); OXYCODONE STAT NEGATIVE (NEGATIVE); PROPOXYPHENE STAT NEGATIVE (NEGATIVE); TRICYCLIC ANTIDEPRESSANTS SCRE NEGATIVE (NEGATIVE)
[2020-01-01 20:49] LABS: BILIRUBIN,TOTAL 0.2 MG/DL (0.1-1.0); BUN/CREATININE RATIO 17; CALCIUM 9.3 MG/DL (8.5-10.1); CARBON DIOXIDE 21 MMOL/L (21-32); CHLORIDE 106 MMOL/L (98-107); CREATININE SERUM 0.48 MG/DL (0.60-1.30); GFR ESTIMATED > 60; GLUCOSE 112 MG/DL (70-105); POTASSIUM 3.5 MMOL/L (3.6-5.0); SODIUM 137 MMOL/L (135-145)
[2020-01-01 20:50] LABS: ACETAMINOPHEN < 10 UG/ML (10-30); ALANINE AMINOTRANSFERASE 26 U/L (0-55); ALBUMIN 3.8 GM/DL (3.2-4.5); ALKALINE PHOSPHATASE 69 U/L (40-136); SALICYLATE < 5.0 MG/DL (5.0-20.0); TOTAL PROTEIN 6.4 GM/DL (6.4-8.2)
--- NOTE | 2020-01-01 21:29 | NUR ---
[facility] CONTACTED FOR SCREENING.
--- NOTE | 2020-01-01 21:37 | NUR ---
[facility] REPORTS PT DOES NOT MEET CRITERIA TO BE SCREENED.
[2020-01-01 22:04] VITALS: BP 133/69
--- NOTE | 2020-01-01 22:04 | NUR ---
PT GIVEN NUMBER FOR KAYLAH MEADOWS PROVIDED BY [facility]. PT INSTRUCTED TO FOLLOW UP WITH KAYLAH MEADOWS TOMORROW MORNING PER [facility].
== END 2020-01-01 22:04 | disposition home or self-care (01) ==
LOC: EDUNIT# 19:31 → ER FS 19:33
DX: O99.342 Other mental disorders complicating pregnancy, second trimester (principal); F32.9 Major depressive disorder, single episode, unspecified; R45.4 Irritability and anger; Z91.040 Latex allergy status; Z77.22 Contact with and (suspected) exposure to environmental tobacco smoke (acute) (chronic); Z3A.00 Weeks of gestation of pregnancy not specified
CPT/HCPCS: 36415; 80053; 80306; 81000; 84443; 85025; 93005; 99283; G0480 ×3; 80320; 80329

== ENCOUNTER 2020-11-06 16:35 | Emergency (ER) | payer MEDICAID ==
[~2020-11-06] VITALS: Ht 152.4 cm; Wt 79.0 kg
[2020-11-06 16:45] VITALS: BP 120/79
--- NOTE | 2020-11-06 17:00 | Diagnostic Imaging Report ---
INDICATION: Left hand pain. EXAMINATION: AP and lateral views of the left hand were obtained. FINDINGS: No fracture, dislocation or other acute abnormality. IMPRESSION: Negative left hand. Dictated by: Dictated on workstation # [id number]
--- NOTE | 2020-11-06 17:14 | Diagnostic Imaging Report ---
EXAMINATION: Left wrist radiographs, 2 views. COMPARISON: 11/06/2020. HISTORY: 25-year-old female, left hand and wrist pain. Injury. FINDINGS: There is no identified acute fracture. Bone mineralization and alignment is unremarkable. There is no identified radiopaque foreign body. IMPRESSION: Unremarkable radiographs of the left wrist. Dictated by: Dictated on workstation # [id number]
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
== END 2020-11-06 17:27 | disposition home or self-care (01) ==
LOC: EDUNIT# 16:35 → ER FS 16:37
DX: S60.222A Contusion of left hand, initial encounter (principal); M25.532 Pain in left wrist; J45.909 Unspecified asthma, uncomplicated; F17.210 Nicotine dependence, cigarettes, uncomplicated; Y04.2XXA Assault by strike against or bumped into by another person, initial encounter
CPT/HCPCS: 73100; 73120

== ENCOUNTER 2021-02-25 13:00 | Emergency (ER) | payer MEDICAID ==
[~2021-02-25] VITALS: Ht 152.4 cm; Wt 84.2 kg
[2021-02-25 13:04] VITALS: BP 108/65
[2021-02-25] MEDS ORDERED: FAMOTIDINE 20 MG (PEPCID) TABLET PO STA (13:10)
[2021-02-25] MEDS ORDERED: predniSONE 20 MG TAB ONE (13:12)
[2021-02-25] MEDS ORDERED: FAMOTIDINE 20 MG (PEPCID) TABLET ONE (13:12)
[2021-02-25] MEDS ORDERED: diphenhydrAMINE 25 MG TAB (BENADRYL) PO ONE ×2 (13:12→13:15)
[2021-02-25] MEDS ORDERED: predniSONE 20 MG TAB PO ONE (13:15)
[2021-02-25] MEDS ORDERED: PRD20T PO (13:54)
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
== END 2021-02-25 13:57 | disposition home or self-care (01) ==
LOC: EDUNIT# 13:00 → ER FS 13:01
DX: T78.49XA Other allergy, initial encounter (principal); J45.909 Unspecified asthma, uncomplicated; F17.290 Nicotine dependence, other tobacco product, uncomplicated
CPT/HCPCS: 99283

== ENCOUNTER 2021-10-29 22:49 | Emergency (ER) | payer MEDICAID ==
[~2021-10-29] VITALS: Ht 152 cm; Wt 72.0 kg
[~2021-10-29 22:49] MED LIST changes: +PRD20T PO
--- NOTE | 2021-10-29 22:51 | ED General ---
History of Present Illness Date Seen by Provider: Oct 29, 2021 Time Seen by Provider: 22:51 Initial Comments 26-year-old female is here with her boyfriend and his son with complaints of scabies. Patient has been dealing with this for the past couple of weeks with itching and rashes on the creases of her elbows and finger webs, under her breasts, on her back, behind the knee. Rash is pruritic. Denies fever, abdominal pain, nausea and vomiting, joint pain. Allergies and Home Medications Allergies Coded Allergies: latex (Verified Allergy, Unknown, 01/01/20) Patient Home Medication List Home Medication List Reviewed: Yes Permethrin (Permethrin) 5 % Cream..g., 60 GM TP ONCE Prescribed by: LISA DELEON MD on 10/29/21 3292 Prednisone (Prednisone) 20 Mg Tab, 40 MG PO DAILY Prescribed by: CHRISTOPHER BUSTAMANTE on 02/25/21 1354 Review of Systems Review of Systems Constitutional: no symptoms reported EENTM: no symptoms reported Respiratory: no symptoms reported Cardiovascular: no symptoms reported Gastrointestinal: no symptoms reported Genitourinary: no symptoms reported Musculoskeletal: no symptoms reported Skin: pruritus, rash Psychiatric/Neurological: No Symptoms Reported Hematologic/Lymphatic: No Symptoms Reported Immunological/Allergic: no symptoms reported Past Yhdlshg-Cwbmec-Pfxgrj Hx Immunizations Up To Date First/Initial COVID19 Vaccinat: N/A Second COVID19 Vaccination Diogo: N/A Third COVID19 Vaccination Date: N/A Seasonal Allergies Seasonal Allergies: No Past Medical History Surgeries: Yes Tubal Ligation Respiratory: Yes Asthma Cardiac: No Neurological: No Genitourinary: No Gastrointestinal: No Musculoskeletal: Yes (TOE FX) Fractures Endocrine: No HEENT: No Cancer: No Did You Recieve Any Treatments: No Psychosocial: No Integumentary: No Blood Disorders: No Adverse Reaction/Blood Tranf: No Physical Exam Vital Signs Vital Signs - First Documented 10/29/21 23:16 Temp 36.4 Pulse 94 Resp 20 Pulse Ox 97 O2 Delivery Room Air Capillary Refill : Height, Weight, BMI Height: 5'0" Weight: 150lbs. oz. 68.815668nh; 36.00 BMI Method:Stated General Appearance: No Apparent Distress HEENT: PERRL/EOMI Neurologic/Psychiatric: Alert, Oriented x3 Skin: Rash Progress/Results/Core Measures Suspected Sepsis SIRS Temperature: Pulse: Respiratory Rate: Blood Pressure / Mean: Results/Orders Vital Signs/I&O 10/29/21 23:16 Temp 36.4 Pulse 94 Resp 20 B/P (MAP) Pulse Ox 97 O2 Delivery Room Air Capillary Refill : Progress Note : Progress Note SCABIES: - 5% Permethrin cream, apply to body and leave on for 8 to 14 hours and then wash off, repeat in 7 to 10 days - Follow up with PCP in 7 days - Over the counter Sarna lotion for itching and hydrocortisone cream - Wash clothing/ bedding/towels in hot water and dryer Departure Impression Primary Impression: Scabies Disposition: 01 HOME, SELF-CARE Condition: Stable Departure-Patient Inst. Referrals: NO,LOCAL PHYSICIAN (PCP/Family) Primary Care Physician Patient Instructions: Scabies, Scabies (DC) Add. Discharge Instructions: SCABIES: - 5% Permethrin cream, apply to body and leave on for 8 to 14 hours and then wash off, repeat in 7 to 10 days - Follow up with PCP in 7 days - Over the counter Sarna lotion for itching and hydrocortisone cream - Wash clothing/ bedding/towels in hot water and dryer Scripts Permethrin (Permethrin) 5 % Cream..g. 60 GM TP ONCE for 2 Days, #2 EA SCABIES: - 5% Permethrin cream, apply to body and leave on for 8 to 14 hours and then wash off, repeat in 7 to 10 days Prov: LISA DELEON MD 10/29/21 LISA DELEON MD Oct 29, 2021 22:51
[2021-10-29] MEDS ORDERED: PERM60CR4 TP (23:32)
== END 2021-10-29 23:55 | disposition home or self-care (01) ==
LOC: EDUNIT# 22:49 → ER FS 22:50
DX: B86 Scabies (principal)
CPT/HCPCS: 99281

== ENCOUNTER 2022-05-13 15:26 | Emergency (ER) | payer MEDICAID ==
[~2022-05-13] VITALS: Ht 152 cm; Wt 72.0 kg
[~2022-05-13 15:26] MED LIST changes: +PERM60CR4 TP
[2022-05-13 15:28] VITALS: BP 114/71
--- NOTE | 2022-05-13 15:38 | ED GU-Female ---
General Chief Complaint: - Reproductive Stated Complaint: GEN PROBLEMS Source: patient, EMS Exam Limitations: no limitations History of Present Illness Date Seen by Provider: May 13, 2022 Time Seen by Provider: 15:27 Initial Comments 26-year-old female with past medical history of tubal ligation coming in due to vaginal bleeding. She typically starts her period on the th of each month. She had some spotting 2 days ago went to the ER because it was slightly early. Urinalysis was not concerning for infection, was not then, she said her blood work was "normal". She is continue to have some more bleeding today, has gone through roughly 3 pads in 12 hours, they were not fully saturated each time. She has contacted her OB because she would like to get a reversal of her tubal ligation. She states she is having intercourse often to try to "untie the tubes". She also states she was diagnosed with influenza A 2 days ago. She says she has not had a fever for a couple days, vomiting has not happened for several days as well. Otherwise having normal bowel movements. Otherwise denying any other acute complaints. Allergies and Home Medications Allergies Coded Allergies: latex (Verified Allergy, Unknown, 01/01/20) Patient Home Medication List Home Medication List Reviewed: Yes Permethrin (Permethrin) 5 % Cream..g., 60 GM TP ONCE Prescribed by: LISA DELEON MD on 10/29/21 6472 Prednisone (Prednisone) 20 Mg Tab, 40 MG PO DAILY Prescribed by: CHRISTOPHER BUSTAMANTE on 02/25/21 1354 Review of Systems Review of Systems Constitutional: No fever EENTM: no symptoms reported Respiratory: no symptoms reported Cardiovascular: no symptoms reported Gastrointestinal: no symptoms reported Genitourinary: see HPI Musculoskeletal: no symptoms reported Skin: no symptoms reported Psychiatric/Neurological: No Symptoms Reported Endocrine: No Symptoms Reported Hematologic/Lymphatic: No Symptoms Reported All Other Systemes Reviewed Negative Unless Noted: Yes Past Ulnoinx-Ghofwp-Jfllpv Hx Patient Social History Tobacco Use?: Yes Tobacco type used: Cigarettes Immunizations Up To Date First/Initial COVID19 Vaccinat: denies Second COVID19 Vaccination Diogo: N/A Third COVID19 Vaccination Date: N/A Seasonal Allergies Seasonal Allergies: No Past Medical History Surgeries: Yes Tubal Ligation Respiratory: Yes Asthma Cardiac: No Neurological: No Genitourinary: No Gastrointestinal: No Musculoskeletal: Yes (TOE FX) Fractures Endocrine: No HEENT: No Cancer: No Did You Recieve Any Treatments: No Psychosocial: No Integumentary: No Blood Disorders: No Adverse Reaction/Blood Tranf: No Physical Exam Vital Signs Vital Signs - First Documented 05/13/22 15:28 Temp 35.9 Pulse 98 Resp 20 B/P (MAP) 114/71 (85) Pulse Ox 98 O2 Delivery Room Air Capillary Refill : Height, Weight, BMI Height: 5'0" Weight: 150lbs. oz. 68.347180vq; 31.00 BMI Method:Stated General Appearance: WD/WN, no apparent distress HEENT: PERRL/EOMI, normal ENT inspection, pharynx normal Neck: non-tender, full range of motion, supple, normal inspection Cardiovascular: regular rate, rhythm, no edema, no murmur Respiratory: chest non-tender, lungs clear, normal breath sounds, no respiratory distress, no accessory muscle use Gastrointestinal: normal bowel sounds, non tender, soft; No distended, No guarding, No rebound Back: normal inspection, no CVA tenderness Extremities: normal range of motion, non-tender, normal inspection, no pedal e radu, no calf tenderness, normal capillary refill Neurologic/Psychiatric: no motor/sensory deficits, alert, normal mood/affect Skin: normal color, warm/dry Lymphatic: no adenopathy Progress/Results/Core Measures Suspected Sepsis SIRS Temperature: Pulse: Respiratory Rate: Laboratory Tests 05/13/22 15:45: White Blood Count 3.4L Blood Pressure / Mean: Laboratory Tests 05/13/22 15:45: Platelet Count 192 Results/Orders Lab Results Laboratory Tests Test 05/13/22 15:45 Range/Units White Blood Count 3.4 L 4.3-11.0 10^3/uL Red Blood Count 4.86 3.80-5.11 10^6/uL Hemoglobin 13.8 11.5-16.0 g/dL Hematocrit 42 35-52 % Mean Corpuscular Volume 85 80-99 fL Mean Corpuscular Hemoglobin 28 25-34 pg Mean Corpuscular Hemoglobin Concent 33 32-36 g/dL Red Cell Distribution Width 14.6 H 10.0-14.5 % Platelet Count 192 130-400 10^3/uL Mean Platelet Volume 9.9 9.0-12.2 fL Immature Granulocyte % (Auto) 0 % Neutrophils (%) (Auto) 54 42-75 % Lymphocytes (%) (Auto) 26 12-44 % Monocytes (%) (Auto) 17 H 0-12 % Eosinophils (%) (Auto) 2 0-10 % Basophils (%) (Auto) 1 0-10 % Neutrophils # (Auto) 1.8 1.8-7.8 10^3/uL Lymphocytes # (Auto) 0.9 L 1.0-4.0 10^3/uL Monocytes # (Auto) 0.6 0.0-1.0 10^3/uL Eosinophils # (Auto) 0.1 0.0-0.3 10^3/uL Basophils # (Auto) 0.0 0.0-0.1 10^3/uL Immature Granulocyte # (Auto) 0.0 0.0-0.1 10^3/uL My Orders Orders - SAMI MEHTA MD Cbc With Automated Diff (05/13/22 15:35) Urine Bedside (05/13/22 15:35) Ibuprofen Tablet (Motrin Tablet) (05/13/22 15:45) Acetaminophen Tablet (Tylenol Tablet) (05/13/22 15:45) Medications Given in ED Current Medications Medications Dose Ordered Sig/Kevin Route Start Time Stop Time Status Last Admin Dose Admin Acetaminophen 1,000 mg ONCE ONCE PO 05/13/22 15:45 05/13/22 15:46 DC 05/13/22 15:44 1,000 MG Ibuprofen 600 mg ONCE ONCE PO 05/13/22 15:45 05/13/22 15:46 DC 05/13/22 15:44 600 MG Vital Signs/I&O 05/13/22 15:28 Temp 35.9 Pulse 98 Resp 20 B/P (MAP) 114/71 (85) Pulse Ox 98 O2 Delivery Room Air Capillary Refill : Progress Note : Progress Note 26-year-old female coming in due to vaginal bleeding. ABCs were intact and vitals were stable on presentation. Physical exam showing including a soft and nontender abdomen. She has gone through 3 pads in roughly 12 hours which is not significant. She is not tachycardic or hypotensive. She is not anemic after getting a CBC here. Offered to do a urinalysis but the patient does not want to at this time, would prefer to go outside and smoke. I discussed we do not allow smoking on the campus, she would like to leave to smoke then she would need to be discharged. Given she has had a normal urinalysis within the past 24 hours and negative test at the other hospital, I do not think it is necessary to redo it. The patient states she would like to be transferred to to have a reversal of her tubal ligation. I discussed that this is unfortunately not emergent and we would not be able to do this today. I recommend following up with her regular OB to get this done. I believe she is likely just menstruating given she is about that time of the month per her own report. Timing could be changed slightly due to her having influenza Departure Impression Primary Impression: Vaginal bleeding Disposition: HOME, SELF-CARE Condition: Stable Departure-Patient Inst. Decision time for Depature: 16:13 Referrals: NO,LOCAL PHYSICIAN (PCP/Family) Primary Care Physician Patient Instructions: Heavy Periods ED Add. Discharge Instructions: Please follow-up with Dr. Graves to get a referral for reversal of your tubal ligation SAMI MEHTA MD May 13, 2022 15:38
[2022-05-13] MEDS ORDERED: IBUPROFEN 600 MG (MOTRIN) TAB PO ONE (15:45)
[2022-05-13] MEDS ORDERED: ACETAMINOPHEN 500 MG TAB (TYLENOL) PO ONE (15:45)
[2022-05-13 15:50] LABS: BASOPHILS % (AUTO) 1 % (0-10); EOSINOPHILS # (AUTO) 0.1 10^3/uL (0.0-0.3); EOSINOPHILS % (AUTO) 2 % (0-10); HEMATOCRIT 42 % (35-52); HEMOGLOBIN 13.8 g/dL (11.5-16.0); LYMPHOCYTES # (AUTO) 0.9 10^3/uL (1.0-4.0); LYMPHOCYTES % (AUTO) 26 % (12-44); MEAN CORPUSCULAR HEMOGLOBIN 28 pg (25-34); MEAN CORPUSCULAR HGB CONC 33 g/dL (32-36); MEAN CORPUSCULAR VOLUME 85 fL (80-99); MEAN PLATELET VOLUME 9.9 fL (9.0-12.2); MONOCYTES # (AUTO) 0.6 10^3/uL (0.0-1.0); MONOCYTES % (AUTO) 17 % (0-12); NEUTROPHILS # (AUTO) 1.8 10^3/uL (1.8-7.8); NEUTROPHILS % (AUTO) 54 % (42-75); PLATELET COUNT 192 10^3/uL (130-400); WHITE BLOOD COUNT 3.4 10^3/uL (4.3-11.0)
== END 2022-05-13 16:15 | disposition home or self-care (01) ==
LOC: EDUNIT# 15:26 → ER FS 15:28
DX: N93.9 Abnormal uterine and vaginal bleeding, unspecified (principal); F17.210 Nicotine dependence, cigarettes, uncomplicated; Z28.310 Unvaccinated for COVID-19
CPT/HCPCS: 36415; 85025; 99283

== ENCOUNTER 2022-08-31 10:12 | Emergency (ER) | payer MEDICAID ==
[~2022-08-31] VITALS: Ht 152.4 cm; Wt 93.5 kg
[2022-08-31 10:15] VITALS: BP 104/79
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
== END 2022-08-31 10:30 | disposition home or self-care (01) ==
LOC: EDUNIT# 10:12 → ER FS 10:14
DX: S60.413A Abrasion of left middle finger, initial encounter (principal); M54.50 Low back pain, unspecified; Z91.040 Latex allergy status; Z28.310 Unvaccinated for COVID-19; Y04.0XXA Assault by unarmed brawl or fight, initial encounter
CPT/HCPCS: 99281